=== PATIENT | female | born 1970 | race Caucasian/White ===

== ENCOUNTER 2017-04-16 19:41 | Emergency (ER) | payer SELFPAY ==
--- NOTE | 2017-04-16 19:46 | ED.PDOC ---
History of Present Illness - General Chief Complaint: Neuro Symptoms/Deficits Stated Complaint: Disoriented Time Seen by Provider: 04/16/17 19:42 Source: patient, RN notes reviewed, Vital Signs reviewed Exam Limitations: no limitations - History of Present Illness Initial Comments: Benita Junior 47 y/o female stated that this morning unable to remember what she was doing and just drove off away from home and stayed inside her car at [employer] parking lot not answering her cellphone calls but eventually texted her daughter and on daughters arrival noted her blank stares and no talking.EMS was then called. According to patient she had been depressed and sleeps only for about 1-2 hours a night for the last 2 weeks.Has also history of a fib and carotid artery disease. Timing/Duration: other - 10 hours Severity: moderate Improving Factors: nothing Worsening Factors: nothing Associated Symptoms: insomnia Allergies/Adverse Reactions: Allergies NO KNOWN ALLERGY Allergy (Verified 02/16/16 10:45) Home Medications: Ambulatory Orders Alprazolam [Xanax] 1 mg PO BID PRN 02/16/16 Apixaban [Eliquis] 5 mg PO BID 02/16/16 Digoxin [Digox] 250 mcg PO DAILY 02/16/16 HYDROcodone 10MG/APAP 325MG [[place] 10/325] 1 each PO Q6H PRN 02/16/16 Metoprolol Tartrate [Lopressor] 50 mg PO TID 02/16/16 Review of Systems - Review of Systems Constitutional: States: no symptoms reported EENTM: States: no symptoms reported Respiratory: States: no symptoms reported Cardiology: States: no symptoms reported Gastrointestinal/Abdominal: States: no symptoms reported Genitourinary: States: no symptoms reported Musculoskeletal: States: no symptoms reported Skin: States: no symptoms reported Neurological: States: see HPI, anxiety, depressed, emotional problems Endocrine: States: no symptoms reported Hematologic/Lymphatic: States: no symptoms reported Past Medical History (General) - Patient Medical History Hx of COPD: Yes Hx Cardiac Disorders: Yes - [place], A-Fib, CABG Hx Congestive Heart Failure: No Hx Pacemaker: No Hx Hypertension: Yes Hx Diabetes: No Hx MRSA: No Hx Other PMH: Yes - carotid artery disease Hx Other - free text: Chronic low back pain Surgical History: coronary bypass surgery, other - cardiac stent,carotid endarterectomy left,,foot - Vaccination History Hx Tetanus, Diphtheria Vaccination: No Hx Influenza Vaccination: No Hx Pneumococcal Vaccination: No - Social History Hx Tobacco Use: Yes Hx Alcohol Use: No Hx Substance Use: No Hx Substance Use Treatment: No Hx Depression: No Feels Threatened In Home Enviroment: No Feels Threatened In a Relationship: No Hx Physical Abuse: No Hx Emotional Abuse: No Hx Suspected Abuse: No - Activities of Daily Living Patient Lives Alone: No - family - Female History Patient is a Female of Child Bearing Age (10 -59 yrs old): No Patient : No Family Medical History - Family History Mother Family History: Unknown Hx Cardiac Disease: Yes - dad-CAD/[place] Physical Exam - Physical Exam General Appearance: Alert, Anxious, No apparent distress, Other - speech fluent Eye Exam: bilateral normal ENT Exam: normal ENT inspection, hearing grossly normal, TMs normal, pharynx normal Neck: non-tender, full range of motion, supple, normal inspection Respiratory: chest non-tender, lungs clear, normal breath sounds, no respiratory distress Cardiovascular/Chest: normal peripheral pulses, no edema, no murmur, irregularly irregular Peripheral Pulses: radial,right: 2+, radial,left: 2+ Gastrointestinal/Abdominal: normal bowel sounds, non tender, soft, no organomegaly, no pulsatile mass Back Exam: no CVA tenderness, no vertebral tenderness Extremities Exam: non-tender, normal range of motion 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, 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 Exam: normal hearing, PERRL, other - pronator drift negative Coordination/Gait: normal finger to nose Motor/Sensory: no motor deficit, no sensory deficit, no pronator drift, negative Babinski's sign Skin Exam: normal color, warm/dry Progress - Progress Progress: 04/16/17 21:27 Vital Signs - 8 hr 04/16/17 04/16/17 04/16/17 19:45 20:00 20:36 Temperature 97.0 F L Pulse Rate [ 130 H 128 H Apical] Respiratory 30 H 32 H 26 H Rate Blood Pressure 137/90 132/76 [Left Arm] O2 Sat by Pulse 95 96 Oximetry 04/17/17 00:11 Recommended admission but stated did not take her heart medications this morning and she will see her primary md in am wants to go home 04/17/17 00:14;heart rate-85-90 ventricular rate - Results/Orders Results/Orders: Laboratory Tests 04/16/17 04/16/17 04/16/17 19:52 19:55 19:55 WBC 14.3 H RBC 4.74 Hgb 15.2 Hct 45.6 MCV 96.3 MCH 32.2 H MCHC 33.4 RDW 13.4 Plt Count 177 MPV 9.5 Absolute Neuts (auto) 10.60 H Absolute Lymphs (auto) 3.00 Absolute Monos (auto) 0.60 Absolute Eos (auto) 0.00 Absolute Basos (auto) 0.00 Neutrophils % 74.5 Lymphocytes % 21.3 Monocytes % 3.9 Eosinophils % 0.2 L Basophils % 0.1 PT 17.4 H INR 1.550 PTT (SP) 34.3 Sodium 137 Potassium 3.1 L Chloride 100 L Carbon Dioxide 25 Anion Gap 15.1 BUN 11 Creatinine 0.91 BUN/Creatinine Ratio 12.1 POC Glucose 140 H Random Glucose 130 H Serum Osmolality 275.0 Lactic Acid Calcium 9.6 Magnesium 1.6 L Total Bilirubin 1.6 H Direct Bilirubin 0.3 H Indirect Bilirubin 1.3 H AST 35 ALT 19 Alkaline Phosphatase 80 Creatine Kinase 339 H* CK-MB (CK-2) 10.1 H* CK-MB (CK-2) % 2.98 Troponin I 0.06 H B-Natriuretic Peptide 172.0 H Serum Total Protein 7.0 Albumin 4.4 Urine Color Urine Appearance Urine pH Ur Specific [place] Urine Protein Urine Glucose (UA) Urine Ketones Urine Blood Urine Nitrite Urine Bilirubin Urine Urobilinogen Ur Leukocyte Esterase Urine RBC Urine WBC Ur Epithelial Cells Urine Bacteria Digoxin Urine Opiates Screen Urine Barbiturates Ur Phencyclidine Scrn U Amphetamin/Meth Scrn U Benzodiazepines Scrn U Cocaine Metab Screen U Cannabinoids Screen 04/16/17 04/16/17 04/16/17 19:55 21:30 21:30 WBC RBC Hgb Hct MCV MCH MCHC RDW Plt Count MPV Absolute Neuts (auto) Absolute Lymphs (auto) Absolute Monos (auto) Absolute Eos (auto) Absolute Basos (auto) Neutrophils % Lymphocytes % Monocytes % Eosinophils % Basophils % PT INR PTT (SP) Sodium Potassium Chloride Carbon Dioxide Anion Gap BUN Creatinine BUN/Creatinine Ratio POC Glucose Random Glucose Serum Osmolality Lactic Acid 1.3 Calcium Magnesium Total Bilirubin Direct Bilirubin Indirect Bilirubin AST ALT Alkaline Phosphatase Creatine Kinase CK-MB (CK-2) CK-MB (CK-2) % Troponin I 0.05 B-Natriuretic Peptide Serum Total Protein Albumin Urine Color Urine Appearance Urine pH Ur Specific [place] Urine Protein Urine Glucose (UA) Urine Ketones Urine Blood Urine Nitrite Urine Bilirubin Urine Urobilinogen Ur Leukocyte Esterase Urine RBC Urine WBC Ur Epithelial Cells Urine Bacteria Digoxin 1.0 Urine Opiates Screen Urine Barbiturates Ur Phencyclidine Scrn U Amphetamin/Meth Scrn U Benzodiazepines Scrn U Cocaine Metab Screen U Cannabinoids Screen 04/16/17 04/16/17 23:35 23:35 WBC RBC Hgb Hct MCV MCH MCHC RDW Plt Count MPV Absolute Neuts (auto) Absolute Lymphs (auto) Absolute Monos (auto) Absolute Eos (auto) Absolute Basos (auto) Neutrophils % Lymphocytes % Monocytes % Eosinophils % Basophils % PT INR PTT (SP) Sodium Potassium Chloride Carbon Dioxide Anion Gap BUN Creatinine BUN/Creatinine Ratio POC Glucose Random Glucose Serum Osmolality Lactic Acid Calcium Magnesium Total Bilirubin Direct Bilirubin Indirect Bilirubin AST ALT Alkaline Phosphatase Creatine Kinase CK-MB (CK-2) CK-MB (CK-2) % Troponin I B-Natriuretic Peptide Serum Total Protein Albumin Urine Color Yellow Urine Appearance Clear Urine pH 5.5 Ur Specific [place] <= 1.005 Urine Protein Trace Urine Glucose (UA) Negative Urine Ketones Negative Urine Blood Trace-intact H Urine Nitrite Negative Urine Bilirubin Negative Urine Urobilinogen 0.2 Ur Leukocyte Esterase Negative Urine RBC 0-1 Urine WBC 5-10 H Ur Epithelial Cells 20-30 Urine Bacteria 2+ H Digoxin Urine Opiates Screen Positive H Urine Barbiturates Negative Ur Phencyclidine Scrn Negative U Amphetamin/Meth Scrn Negative U Benzodiazepines Scrn Positive H U Cocaine Metab Screen Negative U Cannabinoids Screen Negative - EKG/XRAY/CT EKG: Atrial, Fibrillation Comments: heart rate-130 XRAY: chest - cardiomegaly Departure - Departure Clinical Impression: Altered awareness, transient, Atrial fibrillation with rapid ventricular response Insomnia Qualifiers: Insomnia type: unspecified Qualified Code(s): G47.00 - Insomnia, unspecified Time of Disposition: 00:18 Disposition: Discharge to Home or Self Care Condition: Fair Instructions: DI for Insomnia, No More Sleepless Nights: Dealing With Insomnia , Treating Insomnia: A Look at Some Treatment Options Referrals: [facility] [Primary Care Provider] - 1-2 Weeks Home Medications: Ambulatory Orders Alprazolam [Xanax] 1 mg PO BID PRN 02/16/16 Apixaban [Eliquis] 5 mg PO BID 02/16/16 Digoxin [Digox] 250 mcg PO DAILY 02/16/16 HYDROcodone 10MG/APAP 325MG [[place]raine 10/325] 1 each PO Q6H PRN 02/16/16 Metoprolol Tartrate [Lopressor] 50 mg PO TID 02/16/16 Additional Instructions: RETURN TO EMERGENCY ROOM NEEDED;FOLLOW UP WITH PRIMARY MD IN AM CALL FOR APPOINTMENT;CONTINUE WITH ALL HOME MEDICATIONS
[2017-04-16] MEDS ORDERED: SODIUM CHLORIDE 0.9% 1000ML 1,000 ML IVS ONE (19:57)
[2017-04-16 20:05] VITALS: TEMP 97
--- NOTE | 2017-04-16 20:43 | CT ---
EXAM DESCRIPTION: Head CLINICAL HISTORY: 47 years, Female, weakness TECHNIQUE: 5mm slice thickness axial images through the brain were performed in bone and soft tissue windows in the absence of intravenous contrast. This exam was performed according to our departmental dose-optimization program which includes use of Automated Exposure Control, adjustment of the mA and/or kV according to patient size and/or use of iterative reconstruction technique. COMPARISON: None. FINDINGS: A small peripheral focus of encephalomalacia involves the LEFT temporal lobe on axial image 10. Within the brain, there is no significant area of abnormal attenuation, mass effect, midline shift or sulcal effacement. Ventricles are normal in size for patient age. The cerebellar tonsils extend into the cisterna magna but not significantly below this level. The basal cisterns are patent. The visualized paranasal sinuses and mastoid air cells are patent aside from maxillary sinus mucosal thickening. No fracture is present. IMPRESSION: No finding explains this patient's weakness. No intracranial hemorrhage. Suspect small old infarct or post traumatic area of encephalomalacia in the LEFT temporal region. Mild chronic sinus disease. Electronically signed by: Yvonne Dougherty MD 04/16/2017 8:43 PM CDT
--- NOTE | 2017-04-16 20:46 | RAD ---
EXAM DESCRIPTION: Chest,1 View CLINICAL HISTORY: 47 years, Female, weakness COMPARISON: Chest x-ray dated 02/16/2016 and chest x-ray dated 02/11/2017. FINDINGS: A single frontal chest radiograph was performed. The lungs are well expanded and clear. The costophrenic sulci are sharp. The cardiac silhouette remains enlarged without pulmonary edema. The hilar regions, trachea, soft tissues and bony structures are unremarkable aside from LEFT neck surgical clips and previous median sternotomy wire closure. No significant change since the prior study. IMPRESSION: Continued cardiomegaly without pulmonary edema. Electronically signed by: Yvonne Dougherty MD 04/16/2017 8:45 PM CDT
[2017-04-16 21:58] VITALS: O2SAT 98
[2017-04-16 23:40] VITALS: BP 150/77
[2017-04-17] MEDS ORDERED: traZODone HCL 50 MG TAB ONE (00:13)
[2017-04-17] MEDS ORDERED: traZODone HCL 100 MG TAB PO ONE (00:22)
[2017-04-17] MEDS ORDERED: traZODone HCL 100 MG TAB PO SCH (21:00)
== END 2017-04-17 00:33 | disposition home or self-care (01) ==
LOC: ER 19:41
DX: G47.00 Insomnia, unspecified (principal); R41.82 Altered mental status, unspecified; I48.91 Unspecified atrial fibrillation; I51.7 Cardiomegaly; I10 Essential (primary) hypertension; I44.7 Left bundle-branch block, unspecified; I25.2 Old myocardial infarction; Z95.1 Presence of aortocoronary bypass graft; Z87.891 Personal history of nicotine dependence; Z79.899 Other long term (current) drug therapy; Z79.02 Long term (current) use of antithrombotics/antiplatelets
CPT/HCPCS: 36415; 36416; 70450; 71010; 80048; 80076; 80162; 80307; 81001; 82550; 82553; 82948; 83605; 83880; 84484; 85025; 85610; 85730; 93005; J7030

== ENCOUNTER 2017-04-17 18:13 | Emergency (ER) | payer SELFPAY ==
[2017-04-17] MEDS ORDERED: METOPROLOL TARTRATE 50 MG TAB PO ONE (18:21)
[2017-04-17] MEDS ORDERED: DIGOXIN 0.25 MG TAB PO ONE (18:21)
[2017-04-17] MEDS ORDERED: ASPIRIN TABLET 325 MG TAB PO ONE (18:21)
[2017-04-17 18:31] VITALS: TEMP 97.2
--- NOTE | 2017-04-17 18:50 | RAD ---
PROCEDURE: XR CHEST 1 VIEW HISTORY: sob COMPARISON: 04/16/2017 TECHNIQUE: Single projection of the chest was done. FINDINGS: Note is again made of median sternotomy. There is stable cardiomegaly . There are no discrete airspace infiltrates, pneumothoraces or pleural effusions. The pulmonary vascularity is normal. IMPRESSION: There is no acute pleural-parenchymal process seen in the imaged lung arizmendi. Stable cardiomegaly Electronically signed by: Melecio Walsh MD 04/17/2017 6:49 PM CDT Workstation: [id number]
[2017-04-17] MEDS ORDERED: FOLIC ACID INJ 5 MG/ML VIAL IV ONE (18:51)
[2017-04-17] MEDS ORDERED: MULTIPLE VITAMIN INJ 10 ML, THIAMINE HCL INJ 100 MG in SODIUM CHLORIDE 0.9% 1000ML 1,00... IVS ONE (18:52)
[2017-04-17] MEDS ORDERED: POTASSIUM CHLORIDE ELIXIR 20 MEQ/15 ML UD PO ONE (19:42)
[2017-04-17] MEDS ORDERED: MAGNESIUM SULFATE PREMIX 2GM 2 GM in PREMIX BAG 1 BAG IVPB ONE (20:39)
[2017-04-17] MEDS ORDERED: MULTIPLE VITAMIN 10 ML VIAL ONE (20:43)
[2017-04-17] MEDS ORDERED: THIAMINE HCL INJ 100 MG/ML VIAL ONE (22:00)
[2017-04-17] MEDS ORDERED: SODIUM CHLORIDE 0.9% 1000ML 1,000 ML IVS ONE (22:00)
--- NOTE | 2017-04-17 22:17 | ED.PDOC ---
History of Present Illness - General Chief Complaint: Cardiovascular Problem Stated Complaint: fluttering in chest, anxiety Time Seen by Provider: 04/17/17 18:16 Source: patient, family Exam Limitations: clinical condition - History of Present Illness Initial Comments: The patient is a 47-year-old female presenting to the emergency room secondary to respiratory distress and palpitations. EMS was called and when they arrived she was in pulmonary edema with atrial fibrillation with rapid ventricular rate. She received a dose of Cardizem IVwhich slowed her down. This essentially along with some oxygen and got her out of pulmonary edema. Heart rate initially been 140s. This slowed her down to the 80s. Apparently the patient has not had money to get her medications for the last few weeks so she has not been taking her metoprolol and digoxin. The patient just got several of her medications refilled today. Over the last few days she has alsaving some significant confusion. She was actually seen here last night and had a head CT that showed some mild encephalomalacia. The patient has not been sleeping well at night. She had noted that she had been having palpitations for approximately 2 weeks. It is possible that the atrial fibrillation was keeping her up at night. She denies any history of bipolar disorder or shirin. She denies any substance abuse. The patient does act somewhat confused initially. Mentation does improve significantly as the patient is monitored. Timing/Duration: unsure Severity: severe Improving Factors: medication Worsening Factors: nothing Associated Symptoms: malaise, nausea/vomiting, weakness Allergies/Adverse Reactions: Allergies NO KNOWN ALLERGY Allergy (Verified 04/17/17 18:31) Home Medications: Ambulatory Orders Alprazolam [Xanax] 1 mg PO BID PRN 02/16/16 Apixaban [Eliquis] 5 mg PO BID 02/16/16 Digoxin [Digox] 250 mcg PO DAILY 02/16/16 HYDROcodone 10MG/APAP 325MG [[place]ren 10/325] 1 each PO Q6H PRN 02/16/16 Metoprolol Tartrate [Lopressor] 50 mg PO TID 02/16/16 Review of Systems - Review of Systems Constitutional: States: diaphoresis, malaise, weakness EENTM: States: no symptoms reported Respiratory: States: short of breath, wheezing Cardiology: States: palpitations Gastrointestinal/Abdominal: States: no symptoms reported Genitourinary: States: no symptoms reported Musculoskeletal: States: no symptoms reported Skin: States: no symptoms reported Neurological: States: see HPI Endocrine: States: excessive sweating All other Systems: No Change from Baseline Past Medical History (General) - Patient Medical History Hx of COPD: Yes Hx Cardiac Disorders: Yes - [place], A-Fib, CABG Hx Congestive Heart Failure: No Hx Pacemaker: No Hx Hypertension: Yes Hx Diabetes: No Hx MRSA: No - Vaccination History Hx Tetanus, Diphtheria Vaccination: No Hx Influenza Vaccination: No Hx Pneumococcal Vaccination: No - Social History Hx Tobacco Use: Yes Hx Alcohol Use: No Hx Substance Use: No Hx Substance Use Treatment: No Hx Depression: No Hx Physical Abuse: No Hx Emotional Abuse: No Hx Suspected Abuse: No - Activities of Daily Living Hospice Agency (if applicable):: None - Female History Patient is a Female of Child Bearing Age (10 -59 yrs old): No Patient : No Family Medical History - Family History Mother Family History: Unknown Hx Cardiac Disease: Yes - dad-CAD/[place] Physical Exam - Physical Exam General Appearance: Alert, Other - easily confused. Ill-appearing. Eye Exam: bilateral normal Ears, Nose, Throat: hearing grossly normal, normal ENT inspection, normal pharynx Neck: non-tender, full range of motion, supple Respiratory: chest non-tender, other - by the time I did to evaluate her she still has some mild bibasilar rales. There is still occasional scattered wheezing. Work of breathing has decreased significantly from what EMS described. There is minimal accessory muscle use. Lungs: Having clear up well over the next hour. Cardiovascular/Chest: normal peripheral pulses, no edema, tachycardia, irregularly irregular Peripheral Pulses: radial,right: 2+, radial,left: 2+, dorsalis pedis,right: 2+, dorsalis pedis,left: 2+ Gastrointestinal/Abdominal: non tender, soft Rectal Exam: deferred Back Exam: normal inspection, no CVA tenderness, no vertebral tenderness Extremity: normal range of motion, non-tender, normal inspection, no pedal edema , normal capillary refill Neurologic: collar baster II-XII nml as tested, alert, other - flat affect. Easily confused initially. Mental status improved dramatically over the next few hours. Skin Exam: pallor - and diaphoretic initially Comments: Vital Signs - 8 hr 04/17/17 18:15 Temperature 97.2 F L Pulse Rate [ 102 H pulse ox] Respiratory 22 Rate Blood Pressure 123/58 [Left Arm] O2 Sat by Pulse 93 L Oximetry Progress - Progress Progress: 04/17/17 22:20 the patient is a 47-year-old female presenting to the emergency room secondary to atrial fibrillation with rapid ventricular rate giving her flash pulmonary edema and was likely a ischemic encephalopathy secondary to poor perfusion. Mental status improved over the course of the hospital visit. The patient was given doses of metoprolol and digoxin here. Her rate is well controlled and her blood pressures are well controlled. Again mentation has improved. She does have some significant hypokalemia and received a dose of potassium as well. She also received a dose of magnesium for the hypomagnesemia. She needs to follow up with her primary care doctor in the very near future. She needs to remain compliant with her cardiac medications and blood thinner. The recommendation is for the patient to stay and be monitored overnight. The patient left AGAINST MEDICAL ADVICE. - Results/Orders Results/Orders: chest x-ray shows no definitive acute pathology. Laboratory Tests 04/17/17 04/17/17 04/17/17 18:35 18:35 18:35 WBC 10.2 RBC 4.40 Hgb 14.3 Hct 42.7 MCV 97.0 MCH 32.5 H MCHC 33.5 RDW 13.2 Plt Count 146 MPV 9.4 Absolute Neuts (auto) 7.10 H Absolute Lymphs (auto) 2.40 Absolute Monos (auto) 0.60 Absolute Eos (auto) 0.00 Absolute Basos (auto) 0.10 Neutrophils % 69.1 Lymphocytes % 23.8 Monocytes % 5.6 Eosinophils % 0.5 L Basophils % 1.0 PT 17.9 H INR 1.590 PTT (SP) 31.7 Sodium 137 Potassium 2.9 L Chloride 102 Carbon Dioxide 23 Anion Gap 14.9 BUN 12 Creatinine 0.93 BUN/Creatinine Ratio 12.9 Random Glucose 143 H Serum Osmolality 276.1 Calcium 8.9 Magnesium 1.4 L Total Bilirubin 1.4 H AST 39 ALT 22 Alkaline Phosphatase 72 Creatine Kinase 396 H* CK-MB (CK-2) 9.3 H* CK-MB (CK-2) % 2.35 Troponin I 0.04 B-Natriuretic Peptide 131.0 H Serum Total Protein 6.6 Albumin 3.9 Globulin 2.7 Albumin/Globulin Ratio 1.4 TSH 2.87 04/17/17 21:10 WBC RBC Hgb Hct MCV MCH MCHC RDW Plt Count MPV Absolute Neuts (auto) Absolute Lymphs (auto) Absolute Monos (auto) Absolute Eos (auto) Absolute Basos (auto) Neutrophils % Lymphocytes % Monocytes % Eosinophils % Basophils % PT INR PTT (SP) Sodium Potassium Chloride Carbon Dioxide Anion Gap BUN Creatinine BUN/Creatinine Ratio Random Glucose Serum Osmolality Calcium Magnesium Total Bilirubin AST ALT Alkaline Phosphatase Creatine Kinase 358 H* CK-MB (CK-2) 8.1 H* CK-MB (CK-2) % 2.26 Troponin I 0.05 B-Natriuretic Peptide Serum Total Protein Albumin Globulin Albumin/Globulin Ratio TSH EKGs by EMS show atrial fibrillation with rapid ventricular rate around 140 bpm. 2 EKGs obtained here show a left bundle branch block with atrial fibrillation as a baseline. Rate is controlled at 60-76 bpm. Difficult to interpret otherwise secondary to left bundle branch block. Departure - Departure Clinical Impression: Atrial fibrillation with rapid ventricular response, Hypokalemia, Altered mental status Pulmonary edema Qualifiers: Chronicity: acute Qualified Code(s): J81.0 - Acute pulmonary edema Disposition: Left Against Medical Advice Referrals: [facility] [Primary Care Provider] - 1-2 Weeks Home Medications: Ambulatory Orders Alprazolam [Xanax] 1 mg PO BID PRN 02/16/16 Apixaban [Eliquis] 5 mg PO BID 02/16/16 Digoxin [Digox] 250 mcg PO DAILY 02/16/16 HYDROcodone 10MG/APAP 325MG [[place] 10/325] 1 each PO Q6H PRN 02/16/16 Metoprolol Tartrate [Lopressor] 50 mg PO TID 02/16/16
[2017-04-17 23:10] VITALS: BP 109/66; O2SAT 98
== END 2017-04-17 22:10 | disposition left against medical advice (07) ==
LOC: ER 18:13
DX: J81.0 Acute pulmonary edema (principal); I48.91 Unspecified atrial fibrillation; E87.6 Hypokalemia; R41.82 Altered mental status, unspecified; I44.7 Left bundle-branch block, unspecified; I25.2 Old myocardial infarction; Z95.1 Presence of aortocoronary bypass graft; I10 Essential (primary) hypertension; G93.89 Other specified disorders of brain; Z79.02 Long term (current) use of antithrombotics/antiplatelets; Z79.899 Other long term (current) drug therapy; Z87.891 Personal history of nicotine dependence
CPT/HCPCS: 36415; 71010; 80053; 82550; 82553; 83735; 83880; 84443; 84484; 85025; 85610; 85730; 93005; J3411; J7030

== ENCOUNTER 2018-07-06 12:42 | Inpatient (IN) | payer SELFPAY ==
[2018-07-06] MEDS ORDERED: LEVALBUTEROL NEBS 1.25 MG/3 ML VIAL NEB ONE ×2 (12:51→12:52)
[2018-07-06] MEDS ORDERED: IPRATROPIUM BROMIDE NEBS 0.5 MG/2.5 ML VIAL NEB ONE ×2 (12:51→12:52)
[2018-07-06] MEDS ORDERED: methylPREDNISolone SODIUM SUC 125 MG/2 ML VIAL IV ONE (12:52)
[2018-07-06] MEDS ORDERED: diphenhydrAMINE HCL 50 MG/ML VIAL IV ONE (12:53)
--- NOTE | 2018-07-06 14:22 | RAD ---
EXAM DESCRIPTION: Chest,2 Views CLINICAL HISTORY: sob facial swelling, cough, copd hx afib COMPARISON: 04/17/2017 FINDINGS: Two views of the chest are submitted. There is consolidation at the right lung base. Cardiac silhouette is again enlarged and has increased in size. There is increased bilateral pulmonary vascular engorgement. There is worsened mild bibasilar atelectasis and edema. Small bilateral pleural effusions are present. IMPRESSION: Right lung base consolidation. Worsened cardiomegaly and mild bilateral pulmonary edema. Electronically signed by: Link Goldstein 07/06/2018 2:20 PM CDT
[2018-07-06] MEDS ORDERED: ACETYLCYSTEIN 20 % 6,000 MG/30 ML VIAL PO ONE (14:35)
[2018-07-06] MEDS ORDERED: cefTRIAXone SODIUM 1 GM in SODIUM CHL 0.9% 50ML MIN-BAG+ 50 ML IVPB ONE (14:39)
[2018-07-06] MEDS ORDERED: METOPROLOL TARTRATE 25 MG TAB PO ONE (14:39)
[2018-07-06] MEDS ORDERED: AZITHROMYCIN IV 500 MG in SODIUM CHLORIDE 0.9% 250ML 250 ML IVPB ONE (14:39)
--- NOTE | 2018-07-06 14:48 | ED.PDOC ---
History of Present Illness - General Chief Complaint: Respiratory Problem Stated Complaint: sob, facial swelling, chest discomfort. Time Seen by Provider: 07/06/18 12:52 Source: patient, family Exam Limitations: no limitations - History of Present Illness Initial Comments: the patient is a 48-year-old female presenting to the emergency room secondary to worsening shortness of breath over the last 4-5 days. Additionally family has noticed that her eyelids and had some swelling for the last 6 or 7 hours. She does still smoke. She does have a history of coronary artery disease and atrial fibrillation and congestive heart failure. She reports that she has not run out of any of her medications. She reports that she sees Dr. Dawn and has an appointment scheduled with him tomorrow. She has significant increased work of breathing upon arrival but she is not technically hypoxic. Heart rates are in the 140s to 160s and she is obviously in atrial fibrillation. Blood pressures are on the low end at the 100s over 40s. The patient is alert and orientedand in moderate respiratory distress. She denies any fevers. She denies any really productive sputum. She does have wheezes and rales and rhonchi that can be heard without a stethoscope. Pulmonary exam has improved significantly with rate control. However even with oxygen, breathing treatments and rate control she still has persistent right lower lobe rales which is consistent with an infiltrate on her chest x-ray. Timing/Duration: unsure Severity: severe Improving Factors: nothing Worsening Factors: nothing Associated Symptoms: loss of appetite, malaise, shortness of breath, weakness Allergies/Adverse Reactions: Allergies NO KNOWN ALLERGY Allergy (Verified 04/17/17 18:31) Home Medications: Ambulatory Orders Alprazolam [Xanax] 1 mg PO BID PRN 02/16/16 Apixaban [Eliquis] 5 mg PO BID 02/16/16 Digoxin [Digox] 250 mcg PO DAILY 02/16/16 HYDROcodone 10MG/APAP 325MG [[place] 10/325] 1 each PO Q6H PRN 02/16/16 Metoprolol Tartrate [Lopressor] 50 mg PO TID 02/16/16 Review of Systems - Review of Systems Constitutional: States: diaphoresis EENTM: States: no symptoms reported Respiratory: States: cough, short of breath, wheezing Cardiology: States: no symptoms reported Gastrointestinal/Abdominal: States: nausea Genitourinary: States: no symptoms reported Musculoskeletal: States: no symptoms reported Skin: States: other - the patient has significant dry skin and multiple scabs on the dorsal areas of her forearms. Neurological: States: no symptoms reported Endocrine: States: no symptoms reported All other Systems: No Change from Baseline Past Medical History (General) - Patient Medical History Hx Seizures: No Hx Stroke: Yes - mini stroke Hx of COPD: Yes Hx Cardiac Disorders: Yes - MT, A-Fib, CABG Hx Congestive Heart Failure: No Hx Pacemaker: No Hx Hypertension: Yes Hx Thyroid Disease: No Hx Diabetes: No Hx Cancer: No Hx MRSA: No - Vaccination History Hx Tetanus, Diphtheria Vaccination: No Hx Influenza Vaccination: No Hx Pneumococcal Vaccination: No Immunizations Up to Date: Yes - Social History Hx Tobacco Use: Yes Hx Alcohol Use: No Hx Substance Use: No Hx Substance Use Treatment: No Hx Depression: No Hx Physical Abuse: No Hx Emotional Abuse: No Hx Suspected Abuse: No - Female History Patient is a Female of Child Bearing Age (10 -59 yrs old): Yes Patient : No Family Medical History - Family History Mother Family History: Unknown Hx Cardiac Disease: Yes - dad-CAD/MT Physical Exam - Physical Exam General Appearance: Alert, Obvious distress, Ill Appearing Eye Exam: bilateral normal Ears, Nose, Throat: hearing grossly normal, other - very poor dentition Neck: full range of motion, supple Respiratory: respiratory distress, decreased breath sounds, accessory muscle use , crackles, rales, rhonchi, wheezing Cardiovascular/Chest: normal peripheral pulses, irregularly irregular - tachycardic, other - the patient has periorbital edema but no obvious ascites or peripheral edema. Peripheral Pulses: radial,right: 2+, radial,left: 2+, dorsalis pedis,right: 2+, dorsalis pedis,left: 2+ Gastrointestinal/Abdominal: non tender, soft Rectal Exam: deferred Back Exam: normal inspection, no CVA tenderness, no vertebral tenderness Extremity: normal range of motion, non-tender, no pedal edema, no calf tenderness, normal capillary refill Neurologic: design eng II-XII nml as tested, no motor/sensory deficits, alert, oriented x 3 Skin Exam: normal color - she does have dry skin and multiple scabs on the dorsal areas of her forearms. Comments: Vital Signs - 24 hr 0907/06/18 07/06/18 12:54 13:03 13:13 Temperature 97.8 F Pulse Rate 78 120 H 120 H Pulse Rate [ 78 Left Brachial] Respiratory 27 H 32 H 32 H Rate Blood Pressure 101/58 [Left Arm] O2 Sat by Pulse 93 L 97 97 Oximetry 07/06/18 07/06/18 13:31 14:00 Temperature Pulse Rate Pulse Rate [ 80 78 Left Brachial] Respiratory 28 H 20 Rate Blood Pressure 101/68 112/67 [Left Arm] O2 Sat by Pulse 95 97 Oximetry Progress - Progress Progress: 07/06/18 14:53 the patient's a 48-year-old female presenting to the emergency room secondary to acute respiratory distress. She seems to have multiple processes going on. The patient does have COPD and is in a current exacerbation. For that she has received a Xopenex nebulizer treatment along with Atrovent nebulized. She has also received a dose of Solu-Medrol and has been placed on oxygen. She obviously needs to not smoke. The patient is also in a congestive heart failure exacerbation likely due to atrial fibrillation with uncontrolled rate. The patient has responded nicely to 10 mg of Cardizem IV bringing her heart rate down from the 140s to 160s down to the 70s to 90s. Blood pressures have improved with that heart rate correction as well. Pulmonary exam has improved with the above treatment measures as well. The patient does have some periorbital edema that is actually improved since arrival. I'm uncertain if this is simply related to the above 2 processes or if she is having a environmental allergy type reaction. She has received a dose of Solu-Medrol and IV Benadryl and she does appear to be improving from this as well. For now she is not receiving any additional IV fluids. She is also not receiving any additional Lasix. she does still have pleural effusions and mild vascular congestion however her lactic acid is already 3. She may yet proved to require some additional BiPAP overnight. The patient appears to have a right lower lobe pneumonia both on x-ray and exam. This has likely precipitated the above issues. The blood cultures are being performed. The patient is being placed on Rocephin and azithromycin. Urinalysis and urine drug screen are still pending. Further management may be needed based on these results. I am placing the patient on oxygen even though she is not technically hypoxic as she does have a significant history of coronary artery disease and increased recent demand related to her uncontrolled heart rate. 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 Symptomatically this has helped her as well. The patient's d-dimer is mildly elevated. I do not think that she has had a pulmonary emboli and I believe that she is low probability for having a pulmonary emboli given that she is already on Eliquis. however if the patient fails to continue to improve with the above measures then a CT angiogram of the chest may be warranted. For that reason and for the fact that she may yet require an IV diuretic additionally, the patient is being given a dose of Mucomyst for renal protective purposes potentially. Admit for further management and monitoring. The patient reports that she is a patient of Dr. Springers. - Results/Orders Results/Orders: chest x-ray is consistent with congestive heart failurewith pleural effusions and a right lower lobe infiltrate. EKG shows a left bundle-branch block that is fairly advanced and atrial fibrillation with rapid ventricular rate at 137 bpm. This is consistent with previous EKGs on this patient. Difficult to interpret further definitively otherwise. Laboratory Tests 07/06/18 07/06/18 07/06/18 13:14 13:14 13:14 WBC RBC Hgb Hct MCV MCH MCHC RDW Plt Count MPV Absolute Neuts (auto) Absolute Lymphs (auto) Absolute Monos (auto) Absolute Eos (auto) Absolute Basos (auto) Neutrophils % Lymphocytes % Monocytes % Eosinophils % Basophils % D-Dimer, Quantitative 0.77 H* Sodium 139 Potassium 3.7 Chloride 100 L Carbon Dioxide 26 Anion Gap 16.7 BUN 9 Creatinine 0.82 BUN/Creatinine Ratio 11.0 Random Glucose 167 H Serum Osmolality 280.0 Lactic Acid 3.0 H* Calcium 9.1 Magnesium 1.7 L Total Bilirubin 1.3 H AST 27 ALT 17 Alkaline Phosphatase 80 Creatine Kinase 49 CK-MB (CK-2) 1.8 CK-MB (CK-2) % Not Reportable Troponin I 0.02 B-Natriuretic Peptide 537.0 H* Serum Total Protein 6.7 Albumin 3.9 Globulin 2.8 Albumin/Globulin Ratio 1.4 TSH 1.36 Serum HCG, Qual 07/06/18 07/06/18 13:14 13:14 WBC 8.7 RBC 4.59 Hgb 15.1 Hct 46.2 MCV 100.6 H MCH 32.9 H MCHC 32.7 L RDW 13.7 Plt Count 218 MPV 9.2 Absolute Neuts (auto) 6.40 Absolute Lymphs (auto) 1.80 Absolute Monos (auto) 0.50 Absolute Eos (auto) 0.00 Absolute Basos (auto) 0.10 Neutrophils % 73.1 Lymphocytes % 20.4 Monocytes % 5.4 Eosinophils % 0.2 L Basophils % 0.9 D-Dimer, Quantitative Sodium Potassium Chloride Carbon Dioxide Anion Gap BUN Creatinine BUN/Creatinine Ratio Random Glucose Serum Osmolality Lactic Acid Calcium Magnesium Total Bilirubin AST ALT Alkaline Phosphatase Creatine Kinase CK-MB (CK-2) CK-MB (CK-2) % Troponin I B-Natriuretic Peptide Serum Total Protein Albumin Globulin Albumin/Globulin Ratio TSH Serum HCG, Qual Negative Departure - Departure Clinical Impression: Respiratory distress, Acute pulmonary edema, Atrial fibrillation with RVR, COPD with acute exacerbation Acute exacerbation of CHF (congestive heart failure) Qualifiers: Heart failure type: combined systolic and diastolic Qualified Code(s): I50.43 - Acute on chronic combined systolic (congestive) and diastolic (congestive) heart failure Right lower lobe pneumonia Qualifiers: Pneumonia type: due to unspecified organism Qualified Code(s): J18.1 - Lobar pneumonia, unspecified organism Disposition: Admit Patient Referrals: ISRAEL DAWN [Primary Care Provider] - 1-2 Weeks Home Medications: Ambulatory Orders Alprazolam [Xanax] 1 mg PO BID PRN 02/16/16 Apixaban [Eliquis] 5 mg PO BID 02/16/16 Digoxin [Digox] 250 mcg PO DAILY 02/16/16 HYDROcodone 10MG/APAP 325MG [[place] 10/325] 1 each PO Q6H PRN 02/16/16 Metoprolol Tartrate [Lopressor] 50 mg PO TID 02/16/16 Decision To Admit - Decistion To Admit Decision to Admit Reason: Medical Nature Decision to Admit Date: 07/06/18 Decision to Admit Time: 15:02
[2018-07-06] MEDS ORDERED: AZITHROMYCIN IV 500 MG VIAL IVPB ONE (14:55)
[2018-07-06] MEDS ORDERED: SODIUM CHLORIDE 0.9% 250ML 250 ML ONE (14:55)
[2018-07-06] MEDS ORDERED: cefTRIAXone SODIUM 1 GM VIAL ONE (14:55)
[2018-07-06] MEDS ORDERED: SODIUM CHL 0.9% 50ML MIN-BAG+ 50 ML IVPB ONE (14:55)
--- NOTE | 2018-07-06 15:18 | HP ---
SUPERVISING PHYSICIAN: Irvin Suarez MD CHIEF COMPLAINT: Shortness of breath with facial swelling and chest discomfort. HISTORY OF PRESENT ILLNESS: Ms. Junior is a 48-year-old, female patient who presented to the Emergency Room today secondary to increasing shortness of breath that has been occurring over the last 4 to 5 days. Her family had noted that she was having some swelling of her eyelids in the last 7 to 8 hours. She has a history of coronary artery disease, atrial fibrillation and congestive heart failure. She is unsure if she has missed any doses of her medications including her Eliquis and digoxin. On arrival to the Emergency Room , she was also in some mild respiratory distress with heart rate in the 140s to 160s with atrial fibrillation with rapid ventricular response. In the Emergency Room, she was given diltiazem 10 mg which did result in better control of her heart rate into the 80s. Laboratory studies showed she had a normal white count of 8,700 with normal differential. Chemistries showed essentially normal electrolytes and kidney function, but her lactic acid was elevated at 3.0. Magnesium was low at 1.7. Liver functions were all within normal limits except for just a mildly elevated total bilirubin of 1.3. Cardiac enzymes showed troponin 0.02, but elevated BNP of 537. Her initial radiographic studies in the Emergency Room included a two-view chest x-ray and per radiologic interpretation noted there was consolidation to the right base, enlarged cardiac silhouette and increased in size compared to exams on 04/17/17 with increased bilateral pulmonary vasculature and engorgement. Overall, worsened cardiomegaly with mild bilateral pulmonary edema. Given the findings on x-rays and assessment, it appeared the patient was having an exacerbation of congestive heart failure secondary to atrial fibrillation with rapid ventricular rate as well as possible chronic obstructive pulmonary disease exacerbation with concern for developing community acquired pneumonia. She was started on antibiotics, both azithromycin and Rocephin. Her blood pressure stabilized and she was improved in regard to her respiratory efforts after Cardizem and apixaban. Now that she was having better rate control and decreased symptoms, Dr. Sahu, ER physician, requested that the patient be admitted to the hospital for further evaluation and treatment of exacerbation of congestive heart failure, chronic obstructive pulmonary disease with developing pulmonary edema and concerns for community acquired pneumonia. PAST MEDICAL HISTORY: 1. Atrial fibrillation on Eliquis and digoxin. 2. Previous acute myocardial infarction in 2009 requiring stents. 3. Hypertension. 4. Gastroesophageal reflux disease. PAST SURGICAL HISTORY: 1. Coronary artery bypass graft, 4 vessels in 2012. 2. Two sections. CURRENT MEDICATIONS: 1. Eliquis 5 mg b.i.d. 2. Xanax 1 mg b.i.d. as needed. 3. Lopressor 50 mg b.i.d. 4. [place] 10/325 1 q.6h. as needed. 5. Digoxin 200 mcg daily. ALLERGIES: NO KNOWN DRUG ALLERGIES. FAMILY HISTORY: Father is . He had a history of significant cardiovascular disease as well as cancer. Mom had a history of diabetes. SOCIAL HISTORY: The patient is disabled. She lives in [place] and is . She denies any alcohol usage, but notes she smokes about one back a day. REVIEW OF SYSTEMS: CONSTITUTIONAL: Positive for diaphoresis on admission, but denies any fevers, chills. HEENT: Denies headaches, sore throat, nasal congestion, earaches. RESPIRATORY: As noted in history of present illness. Increasing shortness of breath with wheezing and productive cough. CARDIOVASCULAR: Denies actual chest pain, just notable chest discomfort with cough. No syncopal episodes, but noted recent palpitations secondary to rapid ventricular response from the atrial fibrillation. GASTROINTESTINAL: Denies abdominal pains, but has had some nausea, no actual emesis, no constipation, hematochezia or other bowel habit changes. GENITOURINARY: Denies dysuria, polyuria or other urinary symptoms. INTEGUMENTARY: History of severe dry skin. NEUROLOGIC: Denies any syncopal episodes, dizziness, ataxia, seizures. PHYSICAL EXAMINATION: VITAL SIGNS: In the Emergency Department initially, temperature 97.8. Pulse 140. Blood pressure 102/46. She was having respirations up to 38 with mild respiratory distress, but saturation 100% on room air. Admission weight 64.9 kg. After Cardizem, heart rate was 78 documented with blood pressure 101/58, respirations normalized into the 20s. GENERAL: On admission to the Medical/Surgical Floor, the patient was alert, ill- appearing, but in no acute distress. HEENT: Tympanic membranes clear bilaterally. Oropharynx is pink, moist without any lesions. There was notable poor dentition. NECK: Supple, nontender with full range of motion. No jugular venous distention noted. RESPIRATORY: Lungs sounds diminished throughout with some crackles, rales, rhonchi and wheezing heard more prominent on the right than the left. CARDIOVASCULAR: Slightly irregular rate and rhythm with bedside monitor showing in the 70s. There were no appreciable murmurs, gallops, or rubs. ABDOMEN: Soft, nontender. Positive bowel sounds. EXTREMITIES: There is no cyanosis, clubbing or edema. NEUROLOGIC: The patient is alert and oriented times three. Cranial nerves II- XII are grossly intact. Facial features are symmetrical. Extraocular movements are within normal limits. There is no nystagmus noted. There are no notable motor or sensory deficits. INTEGUMENTARY: Skin was pink and dry notably with multiple scabs on the dorsal areas of her forearms. LABORATORY: CBC on admission showed well-healed 8,700, hemoglobin 15.1, hematocrit 46.2. RBC indices showed a macrocytic/hyperchromic presentation. Platelet count 218,000, differential within normal limits. D-dimer elevated at 0.77. Chemistries showed normal electrolytes with BUN 9, creatinine 0.82, glucose 167, lactic acid elevated at 2.3, magnesium 1.7, bilirubin slightly elevated at 1.3. All other liver functions were within normal limits. Troponin 0.02, BNP 537. Serum HCG negative. Digoxin level was pending. Urinalysis pending. Drug screen pending. MICROBIOLOGY: Blood cultures pending. Sputum culture pending. RADIOLOGY: Initially in the Emergency Department, chest x-ray per radiologic interpretation of two-view chest showed right lung base consolidation with worsening cardiomegaly and mild bilateral pulmonary edema. Chest thoracic CTA was pending to rule out pulmonary embolism. EKG: Initially EKG on admission to the Emergency Department showed a left bundle branch block with atrial fibrillation with rapid ventricular response in the 140s which compared to previous EKGs from last admission to be unchanged other than the rapid ventricular response. ASSESSMENT: 1. Chronic atrial fibrillation with rapid ventricular response on Eliquis with concerns for poor medication compliance to include rate control with digoxin with dig level pending. 2. Chest pains, need to rule out acute myocardial infarction. 3. Hypertension, but hypotensive secondary to #1. 4. Acute exacerbation of chronic obstructive pulmonary disease with radiographic studies indication right lung consolidation with concerns for developing community acquired pneumonia. 5. Exacerbation of congestive heart failure with elevated beta natriuretic peptide on admission, likely contributing to #1 with no current echocardiogram for review at time of admission. 6. Gastroesophageal reflux disease. 7. Chronic tobacco abuse and nicotine addiction. 8. History of poor medical compliance with medication regimen. PLAN: The patient will be admitted to the Medical/Surgical Floor for ongoing treatment of both exacerbation of congestive heart failure, chronic obstructive pulmonary disease with concerns for pneumonia as well as atrial fibrillation with rapid ventricular response. I will check a digoxin level to ensure that she is therapeutic, continue with control of her rate as she did have good response with Cardizem in the Emergency Room. In regard to the chronic obstructive pulmonary disease and exacerbation with concerns for developing community acquired pneumonia, she was initiated on antibiotic therapy with Rocephin and azithromycin, which will be continued along with aggressive pulmonary hygiene and Xopenex treatments. With the congestive heart failure exacerbation, at this point she seems to be having decrease in symptoms with better control of her heart rate. Therefore, I will hold off on giving any diuretics. We will have her cardiac telemetry. She will certainly need to followup with her cylinder tester, Dr. Joiner, and needs to have an echocardiogram if possible to further evaluate her degree of heart failure. We will resume her home medications including her Eliquis and digoxin. I have ordered a CT of her chest to further rule out pulmonary embolism. We will await those results and treat accordingly. She will be on a regular diet. We will reload her on digoxin if needed once those results are available. We will anticipate her length of stay to be at least 2 to 3 days. Until clinically stable and able to transition to outpatient throughout, we will continue to monitor and treat appropriately. #[id number] [facility]
[2018-07-06] MEDS ORDERED: ACETAMINOPHEN 325 MG TAB PO PRN (16:30)
[2018-07-06] MEDS ORDERED: GLUCAGON INJ 1 MG VIAL SUBCU PRN (16:30)
[2018-07-06] MEDS ORDERED: NITROGLYCERIN 0.4 MG 25 EA TAB SL PRN (16:30)
[2018-07-06] MEDS ORDERED: IV SET AND CAP CHANGE INJ INJ SCH (16:30)
[2018-07-06] MEDS ORDERED: DEXTROSE 50% 25 GM/50 ML SYG IV PRN (16:30)
[2018-07-06] MEDS ORDERED: LEVALBUTEROL NEBS 1.25 MG/3 ML VIAL INH PRN (16:30)
[2018-07-06] MEDS ORDERED: INSULIN LISPRO 100 UNITS/ML PEN SUBCU SCH (16:30)
[2018-07-06] MEDS ORDERED: HYDROcodone 10MG/APAP 325MG 1 EA TAB PO PRN ×2 (16:40→16:48)
[2018-07-06] MEDS ORDERED: MAGNESIUM SULFATE PREMIX 2GM 2 GM in PREMIX BAG 1 BAG IVPB ONE (16:44)
[2018-07-06] MEDS ORDERED: ALPRAZolam 0.5 MG TAB PO PRN (16:48)
[2018-07-06] MEDS ORDERED: MAGNESIUM SULFATE PREMIX 2GM 50 ML IVPB ONE (16:48)
[2018-07-06] MEDS ORDERED: DIGOXIN INJ 0.5 MG/2 ML AMP IV ONE ×2 (18:00→23:55)
--- NOTE | 2018-07-06 18:21 | CT ---
EXAM: CT CHEST ANGIOGRAPHY WITH IV CONTRAST HISTORY: elevated DDIMER SOB COMPARISON: None Available TECHNIQUE: Contiguous axial images of the chest were obtained from the thoracic inlet to the level of the upper abdomen after the administration of intravenous contrast followed by reconstruction images. Volume rendering images were performed. This exam was performed according to our departmental dose-optimization program, which includes automated exposure control, adjustment of the mA and/or kV according to patient size and/or use of iterative reconstruction technique. FINDINGS: There is atherosclerosis. Patient is status post median sternotomy. There are bilateral pleural fluid collections. There is a calcified pulmonary nodule within the right lower lung. Thickening of interlobular septi compatible with pulmonary emboli. Linear opacities within the lungs particularly at the dependent portion of the lungs may represent atelectasis. The aorta is of normal contour and tapering. There is no discrete filling defect within the pulmonary arterial system to suggest pulmonary emboli. There is no pericardial fluid collection. There is no parenchymal consolidation or pneumothorax. Limited images of the upper abdomen are within normal limits. IMPRESSION: Thickening of the interlobular septi and bilateral pleural fluid collections compatible with pulmonary edema/cardiac decompensation. No CT evidence of acute pulmonary emboli. Electronically signed by: Madi Fleming MD 07/06/2018 6:20 PM CDT
[2018-07-06] MEDS ORDERED: NON-FORMULARY MEDICATION 1 EA MIS (Apixaban [Eliquis] 5 MG) PO SCH (21:00)
[2018-07-06] MEDS ORDERED: APIXABAN 2.5 MG TAB PO ONE (21:12)
[2018-07-06] MEDS: METOPROLOL TARTRATE 50 MG TAB PO SCH (21:20)
[2018-07-06] MEDS: SODIUM CHLORIDE 0.9% (FLUSH) 10 ML SYG IV SCH (21:21)
[2018-07-06] MEDS: NICOTINE PATCH 21 MG TD SCH (21:59)
[2018-07-07] MEDS: LEVALBUTEROL NEBS 1.25 MG/3 ML VIAL INH SCH ×4 (00:15→23:49)
[2018-07-07] MEDS ORDERED: cefTRIAXone SODIUM 1 GM VIAL ONE ×3 (03:05→20:21)
[2018-07-07] MEDS ORDERED: SODIUM CHL 0.9% 50ML MIN-BAG+ 50 ML IVPB ONE ×3 (03:05→20:20)
[2018-07-07] MEDS: cefTRIAXone SODIUM 1 GM in SODIUM CHL 0.9% 50ML MIN-BAG+ 50 ML IVPB SCH ×2 (03:07→14:49)
[2018-07-07] MEDS ORDERED: PANTOPRAZOLE SODIUM IV 40 MG VIAL IV SCH (06:30)
--- NOTE | 2018-07-07 06:59 | RAD ---
EXAM DESCRIPTION: Chest,2 Views CLINICAL HISTORY:48 years Female, Pneumonia Comparison: July 06, 2018 FINDINGS: Small bilateral pleural effusions with minimal bibasilar opacities representing atelectasis. Infectious process not excluded. Prominent cardiac silhouette, unchanged. Median sternotomy wires noted. Electronically signed by: Oniel Del Valle MD 07/07/2018 6:57 AM CDT
[2018-07-07] MEDS ORDERED: APIXABAN 2.5 MG TAB PO ONE (08:28)
[2018-07-07] MEDS ORDERED: DIGOXIN 0.25 MG TAB PO SCH ×2 (09:00→12:00)
[2018-07-07] MEDS: METOPROLOL TARTRATE 50 MG TAB PO SCH ×3 (09:59→20:44)
[2018-07-07] MEDS: SODIUM CHLORIDE 0.9% (FLUSH) 10 ML SYG IV SCH ×2 (09:59→20:44)
[2018-07-07] MEDS: NICOTINE PATCH 21 MG TD SCH (09:59)
[2018-07-07] MEDS: APIXABAN 2.5 MG TAB PO SCH ×2 (09:59→20:44)
--- NOTE | 2018-07-07 11:18 | PN ---
SUPERVISING PHYSICIAN: Kailash Chow MD DATE: 07/07/18 SUBJECTIVE: The patient is sitting up in chair in her hospital room. She has been walking the halls. She feels much better since her heart rate is under control. She was concerned she had an appointment with Dr. Dawn today, her primary care physician, and we discussed her discharge plan as well as ongoing treatment for her pneumonia as well as her congestive heart failure and atrial fibrillation. She does not take any diuretic and she has not seen Dr. Joiner in several years. She would rather see Dr. Dawn prior to seeing a application release manager. OBJECTIVE: VITAL SIGNS: Afebrile. Heart rate 73. Blood pressure 99/68. Respiratory rate 18. O2 saturation 95% on 2 liters nasal cannula. RESPIRATORY: A few scattered rhonchi throughout. No wheezing noted. CARDIAC: Regular rate and irregular rhythm. Atrial fibrillation on the sports management internship. GASTROINTESTINAL: Abdomen is soft, nondistended, nontender. Bowel sounds are positive. EXTREMITIES: No cyanosis, clubbing or edema. NEUROLOGIC: Awake, alert and oriented times three. LABORATORY: CBC is basically within normal limits. Electrolytes within normal limits. Her second lactic acid from yesterday was 2.3. Sputum culture is pending. Preliminary blood cultures are negative to date. Her chest x-ray shows small bilateral pleural effusions with minimal bibasilar opacities representing atelectasis. Infectious process is not excluded. Prominent cardiac silhouette unchanged. Median sternotomy wires noted. All other labs and films have been reviewed via the EMR. ASSESSMENT: 1. Acute exacerbation of chronic obstructive pulmonary disease with radiographic studies indicating right lung consolidations with concerns for developing community acquired pneumonia. The patient is presently azithromycin and Rocephin. 2. Exacerbation of congestive heart failure with elevated beta natriuretic peptide on admission, likely contributing to her chronic atrial fibrillation with rapid ventricular response. No current echocardiogram for review at time of admission. 3. Chronic atrial fibrillation with rapid ventricular response on Eliquis with poor medication compliance. 4. Chest pain. Her serial cardiac enzymes are negative. 5. Hypertension, but hypotensive during this hospital stay secondary to her chronic atrial fibrillation. 6. Gastroesophageal reflux disease. 7. Chronic tobacco abuse and nicotine addiction. 8. History of poor medical compliance. PLAN: We will continue present supportive care. I have restarted her digoxin as after IV dosing, her dig level is now normal. She has seen Dr. Joiner, application release manager, in the past and at this time would rather see Dr. Dawn, her primary care physician, prior to going to see a application release manager. She did have an appointment with Dr. Dawn today and that has been changed to at 7: 30 PM. She has not received any diuretic therapy and we will continue to monitor her for that, but at this time there is no evidence of any fluid overload. We will continue to monitor closely, monitor her cultures and hopefully discharge in the next day or two with close followup with Dr. Dawn. It would be beneficial to have an echocardiogram for review and if she has not had an echocardiogram in the last year, it is recommended she obtain one. We will continue to monitor the patient closely and follow as needed. #[id number] [facility]
[2018-07-07] MEDS: SODIUM CHLORIDE 0.9% (FLUSH) 10 ML SYG IV PRN ×2 (14:51→15:56)
[2018-07-07] MEDS ORDERED: AZITHROMYCIN IV 500 MG VIAL IVPB ONE (15:27)
[2018-07-07] MEDS ORDERED: SODIUM CHLORIDE 0.9% 250ML 250 ML ONE (15:27)
[2018-07-07] MEDS ORDERED: AZITHROMYCIN IV 500 MG in SODIUM CHLORIDE 0.9% 250ML 250 ML IVPB SCH (16:00)
[2018-07-07] MEDS ORDERED: TEMAZEPAM 15 MG CAP PO PRN (18:52)
[2018-07-07] MEDS ORDERED: PANTOPRAZOLE SODIUM TAB 40 MG PO ONE (23:28)
[2018-07-08] MEDS: cefTRIAXone SODIUM 1 GM in SODIUM CHL 0.9% 50ML MIN-BAG+ 50 ML IVPB SCH (03:17)
[2018-07-08] MEDS ORDERED: PANTOPRAZOLE SODIUM TAB 40 MG PO SCH (06:30)
[2018-07-08 07:07] VITALS: BP 118/75; TEMP 97.7; O2SAT 98
[2018-07-08] MEDS ORDERED: POTASSIUM CHLORIDE 20 MEQ TAB PO ONE (08:22)
--- NOTE | 2018-07-08 08:23 | RAD ---
EXAM DESCRIPTION: Chest,2 Views CLINICAL HISTORY: pna COMPARISON: July 07, 2018 FINDINGS: Two-view chest x-ray shows enlargement of the cardiac silhouette. Postsurgical changes from CABG are seen. The lungs are normally aerated with increased interstitial markings throughout the lungs bilaterally. Mild blunting of the posterior costophrenic angles is seen. Surgical clips in the left lower neck are noted. Mild disc degenerative changes of the spine are seen. IMPRESSION: Cardiomegaly with mild prominence of the interstitial markings throughout the lungs which may be chronic finding including mild chronic pulmonary vascular congestion. Small bilateral pleural effusions are noted similar to slightly improved from previous. Electronically signed by: Henry Adams MD 07/08/2018 8:09 AM CDT
[2018-07-08] MEDS: LEVALBUTEROL NEBS 1.25 MG/3 ML VIAL INH SCH (09:38)
[2018-07-08] MEDS: APIXABAN 2.5 MG TAB PO SCH (09:48)
[2018-07-08] MEDS: SODIUM CHLORIDE 0.9% (FLUSH) 10 ML SYG IV SCH (09:48)
[2018-07-08] MEDS: METOPROLOL TARTRATE 50 MG TAB PO SCH (09:48)
[2018-07-08] MEDS: NICOTINE PATCH 21 MG TD SCH (09:48)
--- NOTE | 2018-07-08 09:51 | DS ---
SUPERVISING PHYSICIAN: Kailash Chow MD DISCHARGE DIAGNOSIS: 1. Acute exacerbation of chronic obstructive pulmonary disease with radiographic studies indicating right lung consolidations with concerns for developing community acquired pneumonia. The patient was treated with azithromycin and Rocephin. 2. Exacerbation of congestive heart failure with elevated beta natriuretic peptide on admission. Her exacerbation was most likely due to her atrial fibrillation with rapid ventricular response. 3. Chronic atrial fibrillation with rapid ventricular response on Eliquis with poor medication compliance. 4. Chest pain. Her serial cardiac enzymes are negative. 5. Hypertension, but hypotensive during this hospital stay secondary to her chronic atrial fibrillation. 6. Gastroesophageal reflux disease. 7. Chronic tobacco abuse and nicotine addiction. 8. History of poor medical compliance. HISTORY OF PRESENT ILLNESS: This is a 48-year-old female patient who presented to the Emergency Room secondary to increasing shortness of breath that had been worsening over 4 to 5 days. She was having some swelling of her eyelids as well as mild lower extremity edema. She has a history of coronary artery disease, atrial fibrillation and congestive heart failure. She was unsure of missed doses of her medications including her Eliquis and digoxin. 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 She was given diltiazem 10 mg which did result in better control of her heart rate into the 80s. She had a normal white count of 8,700 with normal differential. Chemistries showed basically normal electrolytes and kidney function, but her lactic acid was elevated at 3.0. Magnesium was low at 1.7. Liver functions were all within normal limits except for just a mildly elevated total bilirubin of 1.3. Cardiac enzymes showed troponin 0.02, but elevated BNP of 537. Her two -view chest x-ray showed a consolidation in the right base with enlarged cardiac silhouette with overall worsened cardiomegaly with mild pulmonary edema. Given the findings on x-rays and assessment, the patient was admitted to the hospital for exacerbation of congestive heart failure secondary to atrial fibrillation with rapid ventricular rate as well as possible chronic obstructive pulmonary disease exacerbation with concern for developing community acquired pneumonia. She was started on azithromycin and Rocephin. Her blood pressure stabilized. HOSPITAL COURSE: Her home medications were resumed. Prior to resuming her digoxin, her initial dig level was low at 0.7. She was given some IV digoxin and it came up to 1.3. Shortly thereafter, her routine dosage of digoxin was resumed. Her edema resolved without any diuretics, most likely helped with the control of her heart rate. She improved clinically and her heart rate was controlled. It is to be noted that there is no echocardiogram to be reviewed. She has seen Dr. Joiner in the past. She will be discharged home today in stable condition. DISCHARGE PLAN: The patient will be discharged home in stable condition. She is to resume her previous medications. I have strongly encouraged her to take her medications as prescribed, especially her digoxin. She is also going to be continued on azithromycin for 4 more days. She has a followup appointment with Dr. Peterson Dawn, her primary care physician, on 07/10/18 at 7:30 PM. It is recommended that she see a independent producer and have a current echocardiogram and have a full cardiac workup. She is to resume her previous activity and she is to return to the hospital or call Dr. Dawn's office for any further problems or complications. DISCHARGE MEDICATIONS: 1. Metoprolol. 2. Hydrocodone. 3. Digoxin. 4. Eliquis. 5. Xanax. 6. Azithromycin. #[id number] [facility]
== END 2018-07-08 09:57 | disposition home or self-care (01) | DRG 190 ==
LOC: ER 12:42 → MS 15:17
PROVIDERS: ADMIT Nurse Practitioner Family; ATTEND Nurse Practitioner Acute Care
PROC: B32T0ZZ Computerized Tomography (CT Scan) of Left Pulmonary Artery using High Osmolar Contrast (ICD-10-PCS; principal; 2018-07-06)
PROC: B32S0ZZ Computerized Tomography (CT Scan) of Right Pulmonary Artery using High Osmolar Contrast (ICD-10-PCS; 2018-07-06)
DX: J44.1 Chronic obstructive pulmonary disease with (acute) exacerbation (principal); J18.9 Pneumonia, unspecified organism; I50.1 Left ventricular failure, unspecified; I50.43 Acute on chronic combined systolic (congestive) and diastolic (congestive) heart failure; J44.0 Chronic obstructive pulmonary disease with (acute) lower respiratory infection; E83.42 Hypomagnesemia; I48.2 Chronic atrial fibrillation; I11.0 Hypertensive heart disease with heart failure; I25.2 Old myocardial infarction; R07.9 Chest pain, unspecified; K21.9 Gastro-esophageal reflux disease without esophagitis; F17.210 Nicotine dependence, cigarettes, uncomplicated; I25.10 Atherosclerotic heart disease of native coronary artery without angina pectoris; Z91.19 Patient's noncompliance with other medical treatment and regimen; Z79.02 Long term (current) use of antithrombotics/antiplatelets; Z95.5 Presence of coronary angioplasty implant and graft; Z79.891 Long term (current) use of opiate analgesic; Z79.899 Other long term (current) drug therapy; Z86.73 Personal history of transient ischemic attack (TIA), and cerebral infarction without residual deficits

== ENCOUNTER 2018-11-14 06:07 | Emergency (ER) | payer SELFPAY ==
[~2018-11-14 06:07] MED LIST: EPINEPHrine INJ 0.1 MG/ML 10 ML SYG ONE
[2018-11-14] MEDS ORDERED: NALOXONE HCL INJ 0.4 MG/ML VIAL ONE ×2 (06:14→06:44)
[2018-11-14] MEDS ORDERED: GLUCAGON INJ 1 MG VIAL ONE ×2 (06:17→06:54)
[2018-11-14] MEDS ORDERED: ACTIVATED CHARCOAL PELLETS 25 GM BTTL ONE (06:25)
[2018-11-14] MEDS ORDERED: ATROPINE SULFATE 0.5 MG/5 ML SYRINGE IV ONE (06:32)
[2018-11-14] MEDS ORDERED: ATROPINE 1 MG/10 ML SYG IV ONE (06:37)
[2018-11-14] MEDS ORDERED: DEXTROSE 5% 250ML 250 ML ONE (06:51)
--- NOTE | 2018-11-14 07:01 | RAD ---
CLINICAL HISTORY: multi drug overdose. COMPARISON: July 08, 2018. TECHNIQUE: XR CHEST 1 VIEW 11/14/2018 6:23 AM FRAMING MILL OPERATOR FINDINGS: Cardiac silhouette is enlarged following sternotomy. Lungs are clear without consolidation, atelectasis, mass or edema. There is no pleural effusion. There is no pneumothorax. There are no acute osseous findings. IMPRESSION: Clear lungs. Electronically signed by: Jese Dillon MD 11/14/2018 6:59 AM FRAMING MILL OPERATOR
--- NOTE | 2018-11-14 07:02 | ED.PDOC ---
History of Present Illness - General Source: patient Exam Limitations: clinical condition - History of Present Illness Initial Comments: the patient is a 48-year-old female presenting to the emergency room secondary to intentional overdose. She reports that she intentionally overdosed on her prescription medications around 2 AM this morning. She was the one called EMS. Of significant concern is the fact that the patient was fairly alert and oriented with heart rates in the 80s and blood pressures in the 130s upon arrival by EMS but within 20 minutes of her arrival here she is much more lethargic with heart rates down in the 40s and systolic blood pressures down in the 60s to 70s. The patient reports that she took 5-10 of her metoprolol, 5-10 of her digoxin, she thinks 10 of her eliquis was and 5-10 of her hydrocodone. she does have known long-standing atrial fibrillation and these are her routine medications but obviously in different doses. She was trying to kill herself. Initial IV to the right before meals infiltrated with an estimated 300 cc of saline. The patient does have a history of depression and she has been having hallucinations recently. She has not been taking her psychiatric medications apparently appropriately. Timing/Duration: 1-3 hours Severity: severe Improving Factors: nothing Worsening Factors: nothing Associated Symptoms: denies symptoms <Trevor Sahu L - Last Filed: 11/14/18 07:00> <Shiraz Kathleen - Last Filed: 11/14/18 08:15> - General Chief Complaint: Drug or Alcohol Abuse Stated Complaint: Overdose Time Seen by Provider: 11/14/18 06:23 - History of Present Illness Allergies/Adverse Reactions: Allergies NO KNOWN ALLERGY Allergy (Verified 07/06/18 15:42) Home Medications: Ambulatory Orders Alprazolam [Xanax] 1 mg PO BID PRN 02/16/16 Apixaban [Eliquis] 5 mg PO BID 02/16/16 Digoxin [Digox] 250 mcg PO DAILY 02/16/16 HYDROcodone 10MG/APAP 325MG [[place] 10/325] 1 each PO Q6H PRN 02/16/16 Metoprolol Tartrate [Lopressor] 50 mg PO TID 02/16/16 Azithromycin 250 mg PO DAILY #4 tab 07/08/18 Review of Systems - Review of Systems Constitutional: States: malaise - she feels tired and weak EENTM: States: no symptoms reported Respiratory: States: no symptoms reported Cardiology: States: no symptoms reported Gastrointestinal/Abdominal: States: no symptoms reported Genitourinary: States: no symptoms reported Musculoskeletal: States: no symptoms reported Skin: States: no symptoms reported Neurological: States: depressed Endocrine: States: no symptoms reported Hematologic/Lymphatic: States: no symptoms reported All other Systems: No Change from Baseline <Trevor Sahu - Last Filed: 11/14/18 07:00> Past Medical History (General) - Patient Medical History Hx Seizures: No Hx Stroke: Yes Hx Asthma: No Hx of COPD: No Hx Cardiac Disorders: Yes - LA, A-Fib, CABG Hx Congestive Heart Failure: Yes Hx Pacemaker: No Hx Hypertension: Yes Hx Thyroid Disease: No Hx Diabetes: No Hx Cancer: No Hx MRSA: No - Vaccination History Hx Tetanus, Diphtheria Vaccination: No Hx Influenza Vaccination: No Hx Pneumococcal Vaccination: No - Social History Hx Tobacco Use: Yes Hx Alcohol Use: No Hx Substance Use: No Hx Substance Use Treatment: No Hx Depression: No Hx Physical Abuse: No Hx Emotional Abuse: No Hx Suspected Abuse: No - Female History Patient : No <Trevor Sahu - Last Filed: 11/14/18 07:00> Family Medical History - Family History Mother Family History: Unknown Hx Cardiac Disease: Yes - dad-CAD/LA <Trevor Sahu - Last Filed: 11/14/18 07:00> Physical Exam - Physical Exam General Appearance: Lethargic - but arousable and able to give some fairly accurate history. Eye Exam: bilateral normal - pupils are approximately 3 mm but minimally reactive. She does not appear to have any visual difficulty and extraocular movements are intact Ears, Nose, Throat: hearing grossly normal, normal ENT inspection, other - poor dentition Neck: full range of motion, supple Respiratory: lungs clear, normal breath sounds, no respiratory distress, no accessory muscle use Cardiovascular/Chest: normal peripheral pulses, no edema, other - atrial fibrillation with bradycardia most of the time and significant 2-3 second pauses. Peripheral Pulses: radial,right: 2+, radial,left: 2+, dorsalis pedis,right: 2+, dorsalis pedis,left: 2+ Gastrointestinal/Abdominal: non tender, soft Rectal Exam: deferred Back Exam: no CVA tenderness, no vertebral tenderness Extremity: normal range of motion, non-tender, no pedal edema, normal capillary refill Neurologic: juvenile justice officer II-XII nml as tested, other - the patient is arousable to voice. She knows where she is in what is going on's and is able to give us her medi cations Skin Exam: normal color - he patient does have dry skin and significant excoriations to her upper extremities were she has been scratching. <Trevor Sahu - Last Filed: 11/14/18 07:00> Progress - Progress Progress: 11/14/18 07:04 the patient is a 48-year-old female presenting to emergency room after a polypharmacy drug overdose attempt intentionally. Positive control was contacted twice. Initially recommended atropine which the patient did receive with some benefit. The second call back with head of human resources recommended an epinephrine drip which we are starting. The patient also received an initial dose of Narcan and an initial dose of glucagon into the IV that infiltrated so I'm uncertain how much of this medication the patient actually saw. These medications were repeated in a functioning IV approximately 30 minutes later. A second IV is being obtained. The patient does have pacer pads on however this point in time is not requiring them. Blood pressures bottomed out around 68 on the systolic end but are back up to around 100 on the systolic end. all laboratory work is still pending including a digoxin level. We do not carry digoxin tab at this facility. If she has markedly elevated level she may be transferred fr that therapy. Obviously patient has significant depression and this is a very significant suicide attempt. She did also receive charcoal activated here as the time of ingestion is somewhat questionable given her symptom progression. Dr. Kathleen will be assuming care. critical care time by me spent on this patient so far is 40 minutes. - Results/Orders Results/Orders: EKG shows atrial fibrillation with significant bradycardia and a couple of second pause. Long-standing left bundle branch block is present. This is old. Heart rates ranged from 38-80 on telemetry. No new ST segment changes when compared to previous EKGs. <Trevor Sahu - Last Filed: 11/14/18 07:00> - Progress Progress: 11/14/18 08:06 Patient stated had been depressed and unable to get an appointment with [facility];does not want to talk after she was asked about harming herself overdosing with the drugs. - Results/Orders Results/Orders: Vital Signs - 8 hr 11/14/18 06:31 Temperature 96.2 F L Pulse Rate [ 57 L left] Respiratory 12 Rate Blood Pressure 87/52 [left] O2 Sat by Pulse 99 Oximetry 11/14/18 06:23 Telemetry .CONTINUOUS 11/14/18 06:30 EKG STAT 11/14/18 07:21 Catheter:[place] QSHIFT 11/14/18 07:30 EPINEPHrine HCL MULTI-DOSE 2 mg Dextrose 5% 250Ml [D5W 250ml] 250 ml IV PRN Laboratory Results - last 24 hr 11/14/18 11/14/18 11/14/18 06:35 06:35 06:35 WBC 6.9 RBC 4.30 Hgb 14.1 Hct 42.5 MCV 98.8 MCH 32.8 H MCHC 33.2 RDW 13.6 Plt Count 158 MPV 8.7 Absolute Neuts (auto) 4.60 Absolute Lymphs (auto) 1.70 Absolute Monos (auto) 0.40 Absolute Eos (auto) 0.10 Absolute Basos (auto) 0.10 Neutrophils % 67.1 Lymphocytes % 24.7 Monocytes % 6.2 Eosinophils % 1.0 Basophils % 1.0 PT 11.0 H INR 1.10 PTT (SP) 30.0 Sodium 138 Potassium 3.4 L Chloride 101 Carbon Dioxide 30 Anion Gap 10.4 L BUN 13 Creatinine 0.90 BUN/Creatinine Ratio 14.4 Random Glucose 97 Serum Osmolality 275.7 Lactic Acid Calcium 8.8 Magnesium 1.8 Total Bilirubin 0.5 AST 21 ALT 12 Alkaline Phosphatase 74 Creatine Kinase 64 CK-MB (CK-2) 3.3 CK-MB (CK-2) % Not Reportable Troponin I 0.02 B-Natriuretic Peptide 205.0 H* Serum Total Protein 6.6 Albumin 3.9 Globulin 2.7 Albumin/Globulin Ratio 1.4 Serum HCG, Qual Urine Color Urine Appearance Urine pH Ur Specific [place] Urine Protein Urine Glucose (UA) Urine Ketones Urine Blood Urine Nitrite Urine Bilirubin Urine Urobilinogen Ur Leukocyte Esterase Urine RBC Urine WBC Ur Epithelial Cells Urine Bacteria Digoxin Salicylates Urine Opiates Screen Acetaminophen Urine Barbiturates Ur Phencyclidine Scrn U Amphetamin/Meth Scrn U Benzodiazepines Scrn U Cocaine Metab Screen U Cannabinoids Screen Ethyl Alcohol 0211/14/18 11/14/18 06:35 06:35 06:35 WBC RBC Hgb Hct MCV MCH MCHC RDW Plt Count MPV Absolute Neuts (auto) Absolute Lymphs (auto) Absolute Monos (auto) Absolute Eos (auto) Absolute Basos (auto) Neutrophils % Lymphocytes % Monocytes % Eosinophils % Basophils % PT INR PTT (SP) Sodium Potassium Chloride Carbon Dioxide Anion Gap BUN Creatinine BUN/Creatinine Ratio Random Glucose Serum Osmolality Lactic Acid 1.2 Calcium Magnesium Total Bilirubin AST ALT Alkaline Phosphatase Creatine Kinase CK-MB (CK-2) CK-MB (CK-2) % Troponin I B-Natriuretic Peptide Serum Total Protein Albumin Globulin Albumin/Globulin Ratio Serum HCG, Qual Urine Color Urine Appearance Urine pH Ur Specific [place] Urine Protein Urine Glucose (UA) Urine Ketones Urine Blood Urine Nitrite Urine Bilirubin Urine Urobilinogen Ur Leukocyte Esterase Urine RBC Urine WBC Ur Epithelial Cells Urine Bacteria Digoxin 1.4 Salicylates Urine Opiates Screen Acetaminophen Urine Barbiturates Ur Phencyclidine Scrn U Amphetamin/Meth Scrn U Benzodiazepines Scrn U Cocaine Metab Screen U Cannabinoids Screen Ethyl Alcohol < 5.40 11/14/18 11/14/18 11/14/18 06:35 06:58 07:21 WBC RBC Hgb Hct MCV MCH MCHC RDW Plt Count MPV Absolute Neuts (auto) Absolute Lymphs (auto) Absolute Monos (auto) Absolute Eos (auto) Absolute Basos (auto) Neutrophils % Lymphocytes % Monocytes % Eosinophils % Basophils % PT INR PTT (SP) Sodium Potassium Chloride Carbon Dioxide Anion Gap BUN Creatinine BUN/Creatinine Ratio Random Glucose Serum Osmolality Lactic Acid Calcium Magnesium Total Bilirubin AST ALT Alkaline Phosphatase Creatine Kinase CK-MB (CK-2) CK-MB (CK-2) % Troponin I B-Natriuretic Peptide Serum Total Protein Albumin Globulin Albumin/Globulin Ratio Serum HCG, Qual Negative Urine Color Urine Appearance Urine pH Ur Specific [place] Urine Protein Urine Glucose (UA) Urine Ketones Urine Blood Urine Nitrite Urine Bilirubin Urine Urobilinogen Ur Leukocyte Esterase Urine RBC Urine WBC Ur Epithelial Cells Urine Bacteria Digoxin Salicylates < 4.0 Urine Opiates Screen Positive H Acetaminophen 76.7 H Urine Barbiturates Negative Ur Phencyclidine Scrn Negative U Amphetamin/Meth Scrn Negative U Benzodiazepines Scrn Positive H U Cocaine Metab Screen Negative U Cannabinoids Screen Negative Ethyl Alcohol 11/14/18 07:22 WBC RBC Hgb Hct MCV MCH MCHC RDW Plt Count MPV Absolute Neuts (auto) Absolute Lymphs (auto) Absolute Monos (auto) Absolute Eos (auto) Absolute Basos (auto) Neutrophils % Lymphocytes % Monocytes % Eosinophils % Basophils % PT INR PTT (SP) Sodium Potassium Chloride Carbon Dioxide Anion Gap BUN Creatinine BUN/Creatinine Ratio Random Glucose Serum Osmolality Lactic Acid Calcium Magnesium Total Bilirubin AST ALT Alkaline Phosphatase Creatine Kinase CK-MB (CK-2) CK-MB (CK-2) % Troponin I B-Natriuretic Peptide Serum Total Protein Albumin Globulin Albumin/Globulin Ratio Serum HCG, Qual Urine Color Yellow Urine Appearance Clear Urine pH 5.0 Ur Specific [place] 1.015 Urine Protein Negative Urine Glucose (UA) Negative Urine Ketones Negative Urine Blood Trace-intact H Urine Nitrite Negative Urine Bilirubin Negative Urine Urobilinogen 0.2 Ur Leukocyte Esterase Negative Urine RBC 0-1 Urine WBC 0 Ur Epithelial Cells 3-5 Urine Bacteria Rare Digoxin Salicylates Urine Opiates Screen Acetaminophen Urine Barbiturates Ur Phencyclidine Scrn U Amphetamin/Meth Scrn U Benzodiazepines Scrn U Cocaine Metab Screen U Cannabinoids Screen Ethyl Alcohol - EKG/XRAY/CT EKG: Atrial, Fibrillation, LBBB, Unchanged from - Comments: HR-40; XRAY: chest - clear lungs <Shiraz Kathleen - Last Filed: 11/14/18 08:15> Departure <Trevor Sahu - Last Filed: 11/14/18 07:00> - Departure Time of Disposition: 08:12 <Shiraz Kathleen - Last Filed: 11/14/18 08:15> - Departure Clinical Impression: History of atrial fibrillation, Chronic anticoagulation Drug overdose, multiple drugs Qualifiers: Encounter type: initial encounter Injury intent: intentional self-harm Qualified Code(s): T50.902A - Poisoning by unspecified drugs, medicaments and biological substances, intentional self-harm, initial encounter Depression Qualifiers: Depression Type: unspecified Qualified Code(s): F32.9 - Major depressive disorder, single episode, unspecified Disposition: Admit Patient Condition: Fair Departure Forms: Patient Portal Self Enrollment Referrals: [facility] [Primary Care Provider] - 1-2 Weeks Home Medications: Ambulatory Orders Alprazolam [Xanax] 1 mg PO BID PRN 02/16/16 Apixaban [Eliquis] 5 mg PO BID 02/16/16 Digoxin [Digox] 250 mcg PO DAILY 02/16/16 HYDROcodone 10MG/APAP 325MG [[place] 10/325] 1 each PO Q6H PRN 02/16/16 Metoprolol Tartrate [Lopressor] 50 mg PO TID 02/16/16 Azithromycin 250 mg PO DAILY #4 tab 07/08/18 Transfer to Outside Facility - Transfer Information Accepting Provider:: Dr. Desirae Hutchins Md Accepting Facility: [facility] Reason for Transfer: required specialist not available - manager scientific,cardi ologist,psychiatrist <Shiraz Kathleen - Last Filed: 11/14/18 08:15> Addendum entered and electronically signed by Shiraz Kathleen MD 11/14/18 11:48: Departure - Departure Clinical Impression: History of atrial fibrillation, Chronic anticoagulation Drug overdose, multiple drugs Qualifiers: Encounter type: initial encounter Injury intent: intentional self-harm Qualified Code(s): T50.902A - Poisoning by unspecified drugs, medicaments and biological substances, intentional self-harm, initial encounter Depression Qualifiers: Depression Type: unspecified Qualified Code(s): F32.9 - Major depressive disorder, single episode, unspecified Time of Disposition: 11:45 Disposition: Transfer to Hospital Condition: Fair Departure Forms: Patient Portal Self Enrollment Referrals: [facility] [Primary Care Provider] - 1-2 Weeks Home Medications: Ambulatory Orders Alprazolam [Xanax] 1 mg PO BID PRN 02/16/16 Apixaban [Eliquis] 5 mg PO BID 02/16/16 Digoxin [Digox] 250 mcg PO DAILY 02/16/16 HYDROcodone 10MG/APAP 325MG [[place] 10/325] 1 each PO Q6H PRN 02/16/16 Metoprolol Tartrate [Lopressor] 50 mg PO TID 02/16/16 Azithromycin 250 mg PO DAILY #4 tab 07/08/18 ED Addendum - ED Addendum Addendum: Initially was placed admit to hospital but will be transferred to [facility] Transfer to Outside Facility - Transfer Information Accepting Provider:: Humberto Hutchins Md Accepting Facility: [facility] Reason for Transfer: required specialist not available - manager scientific,psychiatrist,general office dispatcher
[2018-11-14 07:11] VITALS: TEMP 96.2
[2018-11-14] MEDS ORDERED: NALOXONE HCL INJ 0.4 MG/ML VIAL IV ONE ×2 (07:11)
[2018-11-14] MEDS ORDERED: GLUCAGON INJ 1 MG VIAL IV ONE ×2 (07:13→07:14)
[2018-11-14] MEDS ORDERED: EPINEPHRINE IV SCH (07:30)
[2018-11-14] MEDS ORDERED: DEXTROSE 5% IV SCH (07:30)
[2018-11-14] MEDS ORDERED: ACTIVATED CHARCOAL PELLETS 25 GM BTTL PO ONE (07:31)
[2018-11-14] MEDS ORDERED: fentaNYL CITRATE INJ 50 MCG/ML AMP IV ONE (07:40)
[2018-11-14 08:42] VITALS: BP 136/73; O2SAT 100
== END 2018-11-14 08:50 | disposition short-term general hospital (02) ==
LOC: ER 06:07
DX: T44.7X2A Poisoning by beta-adrenoreceptor antagonists, intentional self-harm, initial encounter (principal); T46.0X Poisoning by, adverse effect of and underdosing of cardiac-stimulant glycosides and drugs of similar action; T40.2X2A Poisoning by other opioids, intentional self-harm, initial encounter; T45.512A Poisoning by anticoagulants, intentional self-harm, initial encounter; F32.9 Major depressive disorder, single episode, unspecified; F19.10 Other psychoactive substance abuse, uncomplicated; I48.91 Unspecified atrial fibrillation; I44.7 Left bundle-branch block, unspecified; I10 Essential (primary) hypertension; Z79.01 Long term (current) use of anticoagulants; Z79.899 Other long term (current) drug therapy; I25.2 Old myocardial infarction; Z95.1 Presence of aortocoronary bypass graft; Z87.891 Personal history of nicotine dependence; Z86.73 Personal history of transient ischemic attack (TIA), and cerebral infarction without residual deficits
CPT/HCPCS: 36415; 36416; 71045; 80053; 80162; 80307; 80320; 80329; 81001; 82550; 82553; 83605; 83735; 83880; 84484; 84703; 85025; 85610; 85730; 93005; J1610; J2310; J7060

== ENCOUNTER 2018-11-22 11:29 | Observation (INO) | payer SELFPAY ==
[2018-11-22] MEDS ORDERED: IPRATROPIUM/ALBUTEROL 3 ML VIAL NEB ONE ×3 (11:37→19:47)
--- NOTE | 2018-11-22 11:42 | ED.PDOC ---
History of Present Illness - General Time Seen by Provider: 11/22/18 11:37 Source: patient, family Exam Limitations: clinical condition - History of Present Illness Initial Comments: patient comes in today with 1 day history of shortness of breath. Patient states she has had a mild cough but no fever or chills. However, she was only recently discharged from the hospital after suicide attempt on 11/14/18. Family states they did not keep her in an inpatient facility because they did not like hospital that she had been sent to. Patient has a long history of bipolar disorder period of shirin and then subsequent times of depression. Today they realize that she was breathing hard and patient states she has had some cough but has not otherwise felt ill. Patient has not speaking to us for the most part in her*answers most questions. Patient has a long history of COPD and she is a smoker. Her breathing treatments this morning did not seem to help. She also has a history of atrial fibrillation with rapid ventricular response and was recently in the hospital for congestive heart failure. Patient denies chest pain, nausea, vomiting, or sore throat. Timing/Duration: 7-24 hours Severity: moderate Activities at Onset: rest Possible Cause: frequent episodes Improving Factors: nothing Worsening Factors: nothing Associated Symptoms: cough, weakness Allergies/Adverse Reactions: Allergies NO KNOWN ALLERGY Allergy (Verified 07/06/18 15:42) Home Medications: Ambulatory Orders Alprazolam [Xanax] 1 mg PO BID PRN 02/16/16 Apixaban [Eliquis] 5 mg PO BID 02/16/16 Digoxin [Digox] 250 mcg PO DAILY 02/16/16 HYDROcodone 10MG/APAP 325MG [[place] 10/325] 1 each PO Q6H PRN 02/16/16 Metoprolol Tartrate [Lopressor] 50 mg PO TID 02/16/16 Azithromycin 250 mg PO DAILY #4 tab 07/08/18 Review of Systems - Review of Systems Constitutional: States: malaise, weakness. Denies: chills, fever EENTM: States: no symptoms reported. Denies: eye pain, ear pain, nose congestion, throat pain Respiratory: States: cough, short of breath, wheezing Cardiology: States: no symptoms reported. Denies: chest pain, palpitations Gastrointestinal/Abdominal: States: no symptoms reported. Denies: abdominal pain, diarrhea, nausea, vomiting Genitourinary: States: no symptoms reported. Denies: discharge, dysuria, frequency Musculoskeletal: States: no symptoms reported Past Medical History (General) - Patient Medical History Hx Seizures: No Hx Stroke: Yes Hx Dementia: Yes Hx Asthma: No Hx of COPD: No Hx Cardiac Disorders: Yes - [place], A-Fib, CABG Hx Congestive Heart Failure: Yes Hx Pacemaker: No Hx Hypertension: Yes Hx Thyroid Disease: No Hx Diabetes: No Hx Cancer: No Hx MRSA: No - Vaccination History Hx Tetanus, Diphtheria Vaccination: No Hx Influenza Vaccination: No Hx Pneumococcal Vaccination: No - Social History Hx Tobacco Use: Yes Hx Alcohol Use: No Hx Substance Use: No Hx Substance Use Treatment: No Hx Depression: No Hx Physical Abuse: No Hx Emotional Abuse: No Hx Suspected Abuse: No - Female History Patient : No Family Medical History - Family History Mother Family History: Unknown Hx Cardiac Disease: Yes - dad-CAD/[place] Physical Exam - Physical Exam General Appearance: Alert, Anxious, Ill Appearing Eyes, Ears, Nose, Throat Exam: PERRL/EOMI, normal ENT inspection, TMs normal, pharynx normal Neck: non-tender, full range of motion, supple, normal inspection Respiratory: chest non-tender, decreased breath sounds, crackles - bilateral bases, wheezing Cardiovascular/Chest: normal peripheral pulses, regular rate, rhythm, no edema, no gallop, no murmur Peripheral Pulses: radial,right: 2+, radial,left: 2+ Gastrointestinal/Abdominal: normal bowel sounds, non tender, soft Neurologic: alert, oriented x 3 Progress - Progress Progress: 11/22/18 14:02 patient doing much better after 3 breathing treatments and 800 cc out of urine. Still with some wheezing but shortness of breath has improved. 11/22/18 14:33 called business relations manager MD Dr. Matos and he will evaluate for admission - Results/Orders Results/Orders: 11/22/18 11:38 SVN/Updraft Therapy .PRN 11/22/18 11:39 URINE DRUG SCREEN, 7 ASSAY Stat 11/22/18 12:15 Albuterol Sulfate Nebs [Proventil Nebs] 2.5 mg NEB CONTINUOUS 11/22/18 12:49 BLOOD CULTURE Stat 11/22/18 13:15 Albuterol Sulfate Nebs [Proventil Nebs] 2.5 mg NEB CONTINUOUS 11/22/18 13:42 SPUTUM CULTURE Stat 11/22/18 13:59 URINALYSIS Stat Laboratory Results WBC 12.2 K/mm3 (4.8-10.8) H 11/22/18 11:55 RBC 4.12 M/mm3 (4.20-5.40) L 11/22/18 11:55 Hgb 13.3 gm/dL (12.0-16.0) 11/22/18 11:55 Hct 41.4 % (36.0-47.0) 11/22/18 11:55 MCV 100.5 fl (81.0-99.0) H 11/22/18 11:55 MCH 32.2 pg (27.0-31.0) H 11/22/18 11:55 MCHC 32.1 g/dL (33.0-37.0) L 11/22/18 11:55 RDW 13.6 % (11.5-14.5) 11/22/18 11:55 Plt Count 152 K/mm3 (130-400) 11/22/18 11:55 MPV 9.4 fl (7.40-10.4) 11/22/18 11:55 Absolute Neuts (auto) 10.80 K/uL (1.8-6.8) H 11/22/18 11:55 Absolute Lymphs (auto) 0.60 K/uL (1.0-3.4) L 11/22/18 11:55 Absolute Monos (auto) 0.60 K/uL (0.2-0.8) 11/22/18 11:55 Absolute Eos (auto) 0.00 K/uL (0.0-0.4) 11/22/18 11:55 Absolute Basos (auto) 0.10 K/uL (0.0-0.1) 11/22/18 11:55 Neutrophils % 88.8 % (42.0-78.0) H 11/22/18 11:55 Lymphocytes % 5.2 % (20.0-50.0) L 11/22/18 11:55 Monocytes % 5.0 % (2.0-9.0) 11/22/18 11:55 Eosinophils % 0.3 % (1.0-5.0) L 11/22/18 11:55 Basophils % 0.7 % (0.0-2.0) 11/22/18 11:55 PT 12.4 SECONDS (9.0-10.9) H 11/22/18 11:55 INR 1.24 (0.9-1.15) H 11/22/18 11:55 PTT (SP) 29.9 SECONDS (21.8-31.6) 11/22/18 11:55 pCO2 38 mmHg (32-45) 11/22/18 12:35 pO2 71 mmHg (83-108) L 11/22/18 12:35 HCO3 24.7 mmol/L 11/22/18 12:35 ABG pH 7.430 (7.35-7.45) 11/22/18 12:35 ABG O2 Saturation 97.0 % (95.0-99.0) 11/22/18 12:35 ABG Base Excess 1.0 mmol/L 11/22/18 12:35 ABG Deoxyhemoglobin 2.9 % (0.0-5.0) 11/22/18 12:35 Oxyhemoglobin % 93.9 % (94.0-98.0) L 11/22/18 12:35 Carboxyhemoglobin % 2.3 % (0.5-1.5) H 11/22/18 12:35 Methemoglobin % Sat 1.0 % (0.0-1.5) 11/22/18 12:35 Calc Total Hemoglobin 12.6 g/dL (12.0-16.0) 11/22/18 12:35 Sodium 138 mmol/L (135-145) 11/22/18 11:55 Potassium 3.3 mmol/L (3.6-5.0) L 11/22/18 11:55 Chloride 100 mmol/L (101-111) L 11/22/18 11:55 Carbon Dioxide 28 mmol/L (21-31) 11/22/18 11:55 Anion Gap 13.3 (12-18) 11/22/18 11:55 BUN 7 mg/dL (7-18) 11/22/18 11:55 Creatinine 0.71 mg/dL (0.6-1.3) 11/22/18 11:55 BUN/Creatinine Ratio 9.9 (10-20) L 11/22/18 11:55 Random Glucose 163 mg/dL (70-105) H 11/22/18 11:55 Serum Osmolality 277.2 mOsm/L (275-295) 11/22/18 11:55 Lactic Acid 2.7 mmol/L (0.5-2.2) H* 11/22/18 11:55 Calcium 8.4 mg/dL (8.4-10.2) 11/22/18 11:55 Magnesium 1.6 mg/dL (1.8-2.5) L 11/22/18 11:55 Total Bilirubin 1.6 mg/dL (0.2-1.0) H 11/22/18 11:55 Direct Bilirubin 0.4 mg/dL (0-0.2) H 11/22/18 11:55 Indirect Bilirubin 1.2 mg/dL (0.2-0.8) H 11/22/18 11:55 AST 41 IU/L (10-42) 11/22/18 11:55 ALT 25 IU/L (10-60) 11/22/18 11:55 Alkaline Phosphatase 82 IU/L (42-121) 11/22/18 11:55 Creatine Kinase 53 IU/L (26-140) 11/22/18 11:55 CK-MB (CK-2) 1.9 ng/mL (0.0-4.4) 11/22/18 11:55 CK-MB (CK-2) % Not Reportable 11/22/18 11:55 Troponin I 0.02 ng/mL (0.01-0.05) 11/22/18 11:55 B-Natriuretic Peptide 374.0 pg/ml (0-100) H* 11/22/18 11:55 Serum Total Protein 6.4 gm/dL (6.4-8.2) 11/22/18 11:55 Albumin 3.6 g/dl (3.2-5.5) 11/22/18 11:55 - EKG/XRAY/CT EKG: Atrial, Fibrillation, LBBB Comments: HR 98 Departure - Departure Clinical Impression: COPD with acute exacerbation Disposition: Admit Patient Condition: Fair Referrals: [facility] [Primary Care Provider] - 1-2 Weeks Home Medications: Ambulatory Orders Alprazolam [Xanax] 1 mg PO BID PRN 02/16/16 Apixaban [Eliquis] 5 mg PO BID 02/16/16 Digoxin [Digox] 250 mcg PO DAILY 02/16/16 HYDROcodone 10MG/APAP 325MG [[place] 10/325] 1 each PO Q6H PRN 02/16/16 Metoprolol Tartrate [Lopressor] 50 mg PO TID 02/16/16 Azithromycin 250 mg PO DAILY #4 tab 07/08/18 Decision To Admit - Decistion To Admit Decision to Admit Reason: Admit from ER Decision to Admit Date: 11/22/18 Decision to Admit Time: 14:33
[2018-11-22] MEDS ORDERED: methylPREDNISolone SODIUM SUC 125 MG/2 ML VIAL IV ONE (12:08)
[2018-11-22] MEDS ORDERED: ALBUTEROL SULFATE 2.5 MG/3 ML VIAL NEB SCH ×2 (12:15→13:15)
--- NOTE | 2018-11-22 12:17 | RAD ---
PROCEDURE: XR Chest, 2 Views CLINICAL INDICATION: The patient is 48 years old and is Female; shortness of breath TECHNIQUE: Frontal and lateral views of the chest. COMPARISON: Prior study from 11/14/2018 FINDINGS: LUNGS: The lungs are clear and free of focal consolidation. Pulmonary vascularity is mildly engorged. PLEURAL SPACE: There is NO pneumothorax. There are no pleural effusions noted. HEART: The heart size is enlarged. MEDIASTINUM: The mediastinal contour is unremarkable. BONES/JOINTS: There are median sternotomy wires identified in the midline attesting to prior cardiac surgery. No acute abnormality. IMPRESSION: The lungs are clear and free of focal consolidation. No change from one week earlier. Electronically signed by: Jax Watt MD 11/22/2018 12:14 PM COUNT TEAM CLERK
[2018-11-22] MEDS ORDERED: FUROSEMIDE INJ 20 MG/2 ML VIAL IV ONE (12:39)
[2018-11-22] MEDS ORDERED: cefTRIAXone SODIUM 2 GM in SODIUM CHL 0.9% 100ML MINI-BAG 100 ML IVPB ONE (12:40)
[2018-11-22] MEDS ORDERED: SODIUM CHL 0.9% 100ML MINI-BAG 100 ML IVPB ONE (13:30)
[2018-11-22] MEDS ORDERED: SODIUM CHLORIDE 0.9% (FLUSH) 10 ML SYG IV PRN (15:26)
[2018-11-22] MEDS ORDERED: ALBUTEROL SULFATE 2.5 MG/3 ML VIAL NEB PRN (15:26)
[2018-11-22] MEDS ORDERED: IV SET AND CAP CHANGE INJ INJ SCH (15:30)
[2018-11-22] MEDS ORDERED: IPRATROPIUM/ALBUTEROL 3 ML VIAL INH SCH (16:00)
--- NOTE | 2018-11-22 16:33 | HP ---
CHIEF COMPLAINT: Shortness of breath. HISTORY OF PRESENT ILLNESS: Ms. Junior is a 8 year-old female a significant history of bipolar disease as well as chronic obstructive pulmonary disease, among other cardiac etiologies, who came to the [facility]. [facility] with about a day of increasing shortness of breath and difficulty breathing. Of note, she was admitted and sent to an inpatient psychiatry facility over the last week for suicidal ideation. She left and has been home for over a couple of days and started to feel the way she does now. She denies any fevers and chills currently, and is not on O2 at home, but requiring it in the E. [facility]. She denies any other symptoms at this time. Of note, her primary care doctor, Dr. Dawn, recently started Depakote, per the family. She was supposed to start yesterday, but was unable to do so due to feeling unwell. They endorse she would like to start taking Depakote today. PAST MEDICAL HISTORY: 1. Bipolar disorder. 2. Atrial fibrillation on anticoagulation. 3. Congestive heart failure, unspecified. 4. History of cerebrovascular accident. 5. Coronary artery disease. PAST SURGICAL HISTORY: 1. Bone fixation in the foot. 2. Coronary artery bypass graft. 3. Endarterectomy in the left neck. CURRENT MEDICATIONS: 1. Metoprolol p.o. daily. 2. Eliquis p.o. daily. 3. Digoxin p.o. daily. 4. Depakote p.o. daily. ALLERGIES: NO KNOWN DRUG ALLERGIES. FAMILY HISTORY: Noncontributory. SOCIAL HISTORY: Past smoker, recent marijuana use, denies alcohol use. REVIEW OF SYSTEMS: HEENT: Denies sore throat or headache. Also denies nasal congestion. CARDIO: No chest pain, no palpitations, no peripheral edema. PULMONARY: Shortness of breath, nonproductive cough. No pleuritic chest pain. GASTROINTESTINAL: Normal bowel movements. No abdominal tenderness. No masses. PSYCHIATRIC: Denies suicidal ideation, currently slightly anxious. PHYSICAL EXAMINATION: VITAL SIGNS: Pulse 100, temperature afebrile, respiratory rate 20 [id number], oxygen 95 on 2 liters nasal cannula. GENERAL: Lying in bed, slightly anxious, breathing somewhat heavily. HEENT: Normocephalic and atraumatic, no lymphadenopathy. CHEST: Irregularly irregular rhythm, no tachycardia, no murmurs. PULMONARY: Slight diffuse breath sounds throughout bilateral arizmendi, minimal crackles in bilateral lower lung arizmendi. GASTROINTESTINAL: Soft, no tenderness to palpation, no rebound, no masses. NEUROLOGIC: Alert and oriented to person, place, and time, no focal deficits observed. Cranial nerves within normal limits. LABORATORY: WBC 12.2, hemoglobin and hematocrit 3.3 and 41.4, platelet count 152. Blood gas after nasal cannula administration pO2 is 71, pCO2 of 38, HCO3 24.7, pH 7.43. Sodium 138, potassium 3.3, chloride 100, BUN and creatinine 7 and 0.71. Lactic acid elevated to 0.7. BNP elevated at 374. Urinalysis negative. Urine drug screen positive for cannabinoids. IMAGING: Chest x-ray with clear lungs and no focal consolidation, no change from chest x-ray 1 week earlier. ASSESSMENT: 1. Chronic obstructive pulmonary disease exacerbation. 2. Congestive heart failure exacerbation with unknown type of heart failure. 3. Bipolar disorder, previously treated but on new medication. 4. Recent suicidal ideation. 5. Atrial fibrillation on anticoagulation. 6. History of cerebrovascular accident. 7. History of coronary artery disease. PLAN: Admitting the patient into observation to treat for COPD exacerbation versus CHF exacerbation. The patient did well in the E. R. with continuous breathing treatments, as well as IV Lasix administration. She diuresed well and was able to breathe comfortably after both of these. Although she is still requiring 2 liters nasal cannula in light of not having home O2. White count mildly elevated, could be a stress-related response, but we will treat with azithromycin to satisfy COPD exacerbation protocol. The patient likely needs a TTE, but this can be done on an outpatient basis. Will likely start Lasix on 11/23 depending on her status overnight. Will treat with Prednisone and Albuterol, as well as azithromycin as previously mentioned. Awaiting updated medication list, will continue home medication as deemed appropriate. #[id number] [facility]
[2018-11-22] MEDS: SODIUM CHLORIDE 0.9% (FLUSH) 10 ML SYG IV SCH (20:34)
[2018-11-22] MEDS: IPRATROPIUM/ALBUTEROL 3 ML VIAL NEB SCH (20:45)
[2018-11-22] MEDS ORDERED: NON-FORMULARY MEDICATION 1 EA MIS (Divalproex Sodium [Divalproex Sodium Dr] 500 MG) PO SCH (21:00)
[2018-11-22] MEDS ORDERED: BUSPIRONE HCL PO SCH (21:00)
[2018-11-22] MEDS ORDERED: NON-FORMULARY MEDICATION 1 EA MIS (Apixaban [Eliquis] 5 MG) PO SCH (21:00)
[2018-11-22] MEDS ORDERED: APIXABAN 2.5 MG TAB PO ONE (21:10)
[2018-11-22] MEDS ORDERED: busPIRone HCL 5 MG TAB ONE (21:11)
[2018-11-22] MEDS ORDERED: DIVALPROEX SODIUM ER 250 MG TAB PO ONE (21:11)
[2018-11-22] MEDS: METOPROLOL SUCCINATE XL 50 MG TAB PO SCH (21:20)
[2018-11-23] MEDS: IPRATROPIUM/ALBUTEROL 3 ML VIAL NEB SCH ×5 (00:12→16:00)
[2018-11-23] MEDS ORDERED: DIVALPROEX SODIUM 250 MG TAB PO SCH (09:00)
[2018-11-23] MEDS ORDERED: busPIRone HCL 5 MG TAB PO SCH (09:00)
[2018-11-23] MEDS ORDERED: DIGOXIN 0.25 MG TAB PO SCH (09:00)
[2018-11-23] MEDS ORDERED: APIXABAN 2.5 MG TAB PO SCH (09:00)
[2018-11-23] MEDS ORDERED: predniSONE 20 MG TAB PO SCH (09:00)
[2018-11-23] MEDS: METOPROLOL SUCCINATE XL 50 MG TAB PO SCH (09:19)
[2018-11-23] MEDS: SODIUM CHLORIDE 0.9% (FLUSH) 10 ML SYG IV SCH (09:21)
[2018-11-23 15:31] VITALS: BP 118/77; TEMP 98.7; O2SAT 97
[2018-11-23] MEDS ORDERED: DOXYCYCLINE HYCLATE CAP 100 MG CAP PO SCH (21:00)
== END 2018-11-23 16:35 | disposition home or self-care (01) ==
LOC: ER 11:29 → MS 16:32
PROVIDERS: ADMIT Family Medicine; ATTEND Nurse Practitioner Family
DX: J44.1 Chronic obstructive pulmonary disease with (acute) exacerbation (principal); I11.0 Hypertensive heart disease with heart failure; I50.9 Heart failure, unspecified; F31.9 Bipolar disorder, unspecified; I48.91 Unspecified atrial fibrillation; I25.10 Atherosclerotic heart disease of native coronary artery without angina pectoris; I25.2 Old myocardial infarction; I44.7 Left bundle-branch block, unspecified; Z91.5 Personal history of self-harm; Z79.01 Long term (current) use of anticoagulants; Z79.899 Other long term (current) drug therapy; Z95.1 Presence of aortocoronary bypass graft; Z87.891 Personal history of nicotine dependence; Z86.73 Personal history of transient ischemic attack (TIA), and cerebral infarction without residual deficits; Z82.49 Family history of ischemic heart disease and other diseases of the circulatory system
CPT/HCPCS: 96365; 96375; J7611 ×2; J0696; J1940; J2930; J7512; J7620 ×6; J7050; 80048 ×2; 80307; 36415 ×4; 82550; 82553; 85025 ×2; 85730; 85610; 84484; 81001; 80076; 87070; 87040 ×2; 83880; 83605; 71046; 94640 ×9; 82803; 36600; 82805; 99285; 93005; G0378; 87502

== ENCOUNTER 2019-02-18 03:46 | Emergency (ER) | payer SELFPAY ==
[2019-02-18] MEDS ORDERED: EPINEPHrine INJ 0.1 MG/ML 10 ML SYG IV ONE ×3 (03:50→04:00)
[2019-02-18] MEDS ORDERED: SODIUM BICARBONATE VIAL 50 MEQ/50 ML VIAL IV ONE (03:54)
--- NOTE | 2019-02-18 04:13 | ED.PDOC ---
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,cpr started,intubated ,given 2 doses of epinephrine IO, on the way to [facility],bagged ventilation and chest compression was continued.On her arrival [employer] showing asystole,pale,moderately cyanotic face;chest compression was ongoing and 3 doses of epinephrine and a dose of bicarbonate given intraosseous ;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 Timing/Duration: unsure Severity: severe Improving Factors: other - see hpi Worsening Factors: other - see hpi Associated Symptoms: other - unresponsive Allergies/Adverse Reactions: Allergies NO KNOWN ALLERGY Allergy (Verified 11/22/18 17:31) Home Medications: Ambulatory Orders Apixaban [Eliquis] 5 mg PO BID 02/16/16 Digoxin [Digox] 250 mcg PO DAILY 02/16/16 Buspirone HCl 0.5 tablet PO BID 11/22/18 Divalproex Sodium [Divalproex Sodium Dr] 500 mg PO BID 11/22/18 Metoprolol Succinate [Toprol Xl] 50 mg PO BID 11/22/18 Albuterol Sulfate Nebs [Proventil Nebs] 2.5 mg NEB Q4H PRN #30 vial 11/23/18 Doxycycline Hyclate [Vibramycin] 100 mg PO BID #14 cap 11/23/18 Methylprednisolone [Medrol Dose Rustam] 4 mg PO DAILY 6 Days #21 tab 11/23/18 Review of Systems - Review of Systems Unable to Obtain Due To: condition, intubated, clinical condition - unresponsive Past Medical History (General) - Patient Medical History Hx Seizures: No Hx Stroke: Yes - 2016 Hx Dementia: Yes Hx Asthma: Yes Hx of COPD: Yes Hx Cardiac Disorders: Yes - [place], A-Fib, CABG Hx Congestive Heart Failure: Yes Hx Pacemaker: No Hx Hypertension: Yes Hx Thyroid Disease: No Hx Diabetes: No Hx Cancer: No Hx MRSA: No Hx Other PMH: Yes - bipolar depression,drug overdose;suicidal attempt Surgical History: coronary bypass surgery, other - carotid endarterectomy,c- section - Vaccination History Hx Tetanus, Diphtheria Vaccination: No Hx Influenza Vaccination: No Hx Pneumococcal Vaccination: No - Social History Hx Tobacco Use: Yes Hx Alcohol Use: No Hx Substance Use: No Hx Substance Use Treatment: No Hx Depression: No Hx Physical Abuse: No Hx Emotional Abuse: No Hx Suspected Abuse: No - Female History Patient : No Family Medical History - Family History Mother Family History: Unknown Age (years): 69 Living Status: Still Living Hx Family Asthma: No Hx Family Congestive Heart Failure: No Hx Family Hypertension: Yes Hx Family Stroke: No Hx Cardiac Disease: Yes - dad-CAD/[place] Hx Family Diabetes: No Hx Family Cancer: No Physical Exam - Physical Exam General Appearance: Other - unresponsive Eye Exam: bilateral other - fixed dilated Respiratory: other - intubated /bagged ventilation Cardiovascular/Chest: other - pulseless Peripheral Pulses: radial,right: 0, radial,left: 0 Gastrointestinal/Abdominal: distended - slightly Neurologic: other - unresponsive Skin Exam: cyanosis - face, pallor - from neck to both feet Progress - Progress Progress: 02/18/19 04:44 Vital Signs - 8 hr 02/18/19 02/18/19 04:00 04:12 Pulse Rate [ 0 L 0 L Apical] Respiratory 0 L 0 L Rate O2 Sat by Pulse 85 L Oximetry 02/18/19 04:44 Brought by EMS on her arrival chest compression ;bag ventilation on going;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 02/18/19 04:51 Procedures - Additional Procedures Additional Procedures: CPR - see hpi and progress notes Departure - Departure Clinical Impression: DOA ( on arrival) Time of Disposition: 04:52 Disposition: Departure Forms: Patient Portal Self Enrollment Referrals: [facility] [Primary Care Provider] - 1-2 Weeks Home Medications: Ambulatory Orders Apixaban [Eliquis] 5 mg PO BID 02/16/16 Digoxin [Digox] 250 mcg PO DAILY 02/16/16 Buspirone HCl 0.5 tablet PO BID 11/22/18 Divalproex Sodium [Divalproex Sodium Dr] 500 mg PO BID 11/22/18 Metoprolol Succinate [Toprol Xl] 50 mg PO BID 11/22/18 Albuterol Sulfate Nebs [Proventil Nebs] 2.5 mg NEB Q4H PRN #30 vial 11/23/18 Doxycycline Hyclate [Vibramycin] 100 mg PO BID #14 cap 11/23/18 Methylprednisolone [Medrol Dose Rustam] 4 mg PO DAILY 6 Days #21 tab 11/23/18
[2019-02-18 04:26] VITALS: O2SAT 85
== END 2019-02-18 04:05 | disposition expired ==
LOC: ER 03:46
DX: F03.90 Unspecified dementia, unspecified severity, without behavioral disturbance, psychotic disturbance, mood disturbance, and anxiety; J44.9 Chronic obstructive pulmonary disease, unspecified; I25.2 Old myocardial infarction; I48.91 Unspecified atrial fibrillation; I50.9 Heart failure, unspecified; I11.0 Hypertensive heart disease with heart failure; F31.9 Bipolar disorder, unspecified; Z86.73 Personal history of transient ischemic attack (TIA), and cerebral infarction without residual deficits; Z95.1 Presence of aortocoronary bypass graft; Z91.5 Personal history of self-harm; Z87.891 Personal history of nicotine dependence; Z79.899 Other long term (current) drug therapy